=== PATIENT | male | born 1950 | race Caucasian/White ===

== ENCOUNTER 2016-09-04 05:30 | Inpatient (IN) ==
[2016-09-04] MEDS ORDERED: VANCOMYCIN INJ 1,000 MG in SODIUM CHLORIDE 0.9% 250 ML IV ONE (06:00)
[2016-09-04] MEDS ORDERED: SODIUM CHLORIDE 0.9% 100 ML IV ONE ×2 (06:02→08:48)
[2016-09-04] MEDS ORDERED: VANCOMYCIN 1,000 MG VIAL ONE (06:02)
[2016-09-04] MEDS ORDERED: ceFAZolin 1,000 MG VIAL ONE (06:02)
[2016-09-04] MEDS: LACTATED RINGERS 1,000 ML IV SCH ×2 (06:20→20:33)
[2016-09-04] MEDS ORDERED: FAMOTIDINE 20 MG TABLET ONE (06:35)
[2016-09-04] MEDS ORDERED: LORazepam 1 MG TABLET ONE (06:35)
[2016-09-04] MEDS ORDERED: FAMOTIDINE 20 MG TABLET PO ONE (06:35)
[2016-09-04] MEDS ORDERED: LORazepam 1 MG TABLET PO ONE (06:35)
[2016-09-04] MEDS ORDERED: ONDANSETRON 4 MG/2 ML VIAL ONE ×2 (07:00→08:59)
[2016-09-04] MEDS ORDERED: ETOMIDATE 20 MG/10 ML VIAL IV ONE (07:00)
[2016-09-04] MEDS ORDERED: LIDOCAINE 2% 5 ML VIAL ONE (07:00)
[2016-09-04] MEDS ORDERED: PROPOFOL 200 MG/20 ML VIAL IV ONE (07:00)
[2016-09-04] MEDS ORDERED: KETOROLAC 30 MG/1 ML VIAL ONE (07:00)
--- NOTE | 2016-09-04 07:00 | History and Physical Update ---
History and Physical Update - History and Physical H&P was reviewed, the patient examined and there: are no changes in the patients condition since last H&P was completed.
[2016-09-04] MEDS ORDERED: NALOXONE 0.4 MG/ML VIAL IV PRN (07:03)
[2016-09-04] MEDS ORDERED: TEMAZEPAM 7.5 MG CAPSULE PO PRN (07:03)
[2016-09-04] MEDS ORDERED: ONDANSETRON 4 MG/2 ML VIAL IV PRN ×2 (07:03→09:03)
[2016-09-04] MEDS ORDERED: BISACODYL 10 MG SUPP RECTAL PRN (07:03)
[2016-09-04] MEDS ORDERED: LACTULOSE 20 GM/30 ML UDCUP PO PRN (07:03)
[2016-09-04] MEDS ORDERED: MAGNESIUM HYDROXIDE SUSP 30 ML UDCUP PO PRN (07:03)
[2016-09-04] MEDS ORDERED: diphenhydrAMINE CAP 25 MG CAPSULE PO PRN (07:03)
[2016-09-04] MEDS ORDERED: HYDROmorphone 2 MG/1 ML VIAL IV PRN (07:03)
[2016-09-04] MEDS ORDERED: PROMETHAZINE 25 MG/1 ML VIAL IM PRN (07:03)
[2016-09-04] MEDS ORDERED: TRANEXAMIC ACID 1,000 MG/10 ML VIAL IV ONE (07:51)
[2016-09-04] MEDS ORDERED: ROPIVACAINE 0.5% 30 ML VIAL ONE (07:54)
--- NOTE | 2016-09-04 08:44 | Anesthesia Post-Op ---
Anesthesia Post OP - Post Ansesthetic Evaluation Patient seen in post op: Yes Resp: within normal limits CV: within normal limits Mental: within normal limits Temp: within normal limits [id number]: within normal limits Nausea and Vomiting: within normal limits Pain: within normal limits
[2016-09-04] MEDS ORDERED: MIDAZOLAM 2 MG/2 ML VIAL ONE (08:47)
[2016-09-04] MEDS ORDERED: fentaNYL 100 MCG/2 ML VIAL ONE (08:47)
[2016-09-04] MEDS ORDERED: LACTATED RINGERS 1,000 ML IV ONE (08:48)
[2016-09-04] MEDS ORDERED: KETAMINE 500 MG/10 ML VIAL ONE (08:48)
[2016-09-04] MEDS ORDERED: HYDROmorphone 2 MG/1 ML VIAL ONE (08:59)
--- NOTE | 2016-09-04 09:00 | XRay Report ---
Exam: XR knee 2V RT Date: 09/04/2016 7:05 AM Indication: Postop total knee Comparison: None Technical:AP lateral views Findings: Right total knee prosthesis has been placed. Surgical drains present x2 in the suprapatella bursa. Subcutaneous air is present. Osteotomy on the posterior aspect patella. No fracture present. Immobilizer present. Impression: 1. Interval total knee replacement without fracture with surgical drains present. PROCEDURE INTERPRETED AT [facility] DEPARTMENT OF RADIOLOGY Final Report Signed by: Dr. Sammy Bravo
[2016-09-04] MEDS: HYDROmorphone 2 MG/1 ML VIAL IV PRN ×2 (09:01→09:06)
[2016-09-04] MEDS: HYDROmorphone PCA 30 MG/30 ML SYRINGE IV SCH (13:23)
[2016-09-04] MEDS: ceFAZolin 2,000 MG in PREMIX 1 EACH IV SCH ×2 (14:18→21:05)
--- NOTE | 2016-09-04 14:57 | Pulmonology Consult Note ---
Assessment and Plan (1) Postop right knee replacement Status: Acute Assessment and plan: Likely some of the pain medication and anesthetic effects or carrying over postop. I suspect he has got some underlying sleep apnea. Does not appear to be having a lot of pain. Current Visit: Yes (2) Hypoxemia Status: Acute Assessment and plan: Again this is likely due to effects of pain medications and anesthetics on a patient who has undiagnosed obstructive sleep apnea. We will try him on 1 L nasal oxygen when he is awake and use BiPAP when he is asleep and try to keep his O2 sat at about 88-92%. ABGs are pending. Chest x-ray is pending. He does have a history of aortic insufficiency but nothing to indicate heart failure other than a trace of pedal edema. Will order a BNP. Current Visit: Yes (3) History of colon cancer, stage III Status: Acute Assessment and plan: This occurred in 2002. He had surgery and chemotherapy and is in complete remission. Dr. Wiggins follows. Current Visit: Yes History of Present Illness Chief complaint: Hypoxemia History of present illness: Mr. Burns is a 66 year old male had a right total knee replacement earlier today. In the recovery room he was somewhat hypoxemic and was put on BiPAP. His oxygen saturation is ranging in the mid 80s off oxygen and off the BiPAP at present. The patient is a non-smoker. He does not have any known chronic lung disease. He does fall asleep if he sits down to watch TV but has not fallen asleep talking to someone or driving. He does snore. He is overweight with a BMI of 35. He is getting some pain medications postoperatively. He has been diagnosed as having aortic insufficiency but no other significant heart or lung disease. He is not been known to be in heart failure. Dr. Maki has seen him in the past Home Medications Medication Instructions Recorded Confirmed Type Aspirin Tab 325 mg PO DAILY 09/01/16 09/04/16 History Atorvastatin [Lipitor] 10 mg PO DAILY 09/01/16 09/04/16 History Celecoxib [Celebrex] 100 mg PO DAILY 09/01/16 09/04/16 History Esomeprazole Magnesium [Nexium] 40 mg PO DAILY 09/01/16 09/04/16 History Furosemide Tab [Lasix Tab] 20 mg PO DAILY 09/01/16 09/04/16 History Losartan Potassium [Cozaar] 100 mg PO DAILY 09/01/16 09/04/16 History Multivitamin (Ocuvite) [Ocuvite] 1 tablet PO DAILY 09/01/16 09/04/16 History Nisoldipine [Sular] 17 mg PO DAILY 09/01/16 09/04/16 History Potassium Chloride 10 meq PO DAILY 09/01/16 09/04/16 History Tramadol HCl [Tramadol Tab] 50 mg PO BEDTIME 09/01/16 09/04/16 History Ubidecarenone [Co Q-10] 100 mg PO DAILY 09/01/16 09/04/16 History Allergies Allergy/AdvReac Type Severity Reaction Status Date / Time No Known Allergies Allergy Unverified 09/04/16 07:25 - Constitutional Constitutional: Present: daytime sleepiness - Respiratory Respiratory: Present: snoring - Musculoskeletal Musculoskeletal: Present: arthralgias Exam (Pulmonay) H&P - Constitutional Vitals: Period Temp Pulse Resp BP Sys/Raines Pulse Ox Last 24 Hr 97.5 F-98.1 F 46-65 16-20 106-160/54-95 93-98 Exam: Patient is alert and responsive. O2 saturation varying from 85-91 with him on room air. Pupils react to light throat clear. I do not hear any bruits. Chest is clear no wheezing no rales. Heart normal rate and rhythm without very mild diastolic murmur at the right base. Abdomen soft nontender no masses. Extremities no clubbing cyanosis. He does have some brownish discoloration of both lower extremities with like he has had in the postphlebitic syndrome or leg injuries in the past. Calves are nontender. Brace on the right knee. 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) Endocrine: History of: Dyslipidemia Gastrointestinal: History of: GERD Hematology: History of: Blood Transfusion Reaction (2002) - Surgical History HEENT Surgeries: Surgical HX of: Eye Surgery (right and light cataract surgery) Abdominal Surgeries: Surgical HX of: Abdominal Surgery (colectomy (colon cancer) ), Appendectomy, Colonoscopy, EGD Orthopedic Surgeries: Surgical HX of;: Total Knee Replacement (RTK 08/26) - Family History Family History: Reports;: Family Cancer (mother), Family Heart Disease (mother) , Family Stroke (father) - Social History Smoking Status: Never smoker Frequency of Alcohol Use: None Type of Drug Use: None Results - Diagnostic Findings Procedure: Chest x-ray: pending Specialty Discharge - Follow Up or Referrals Follow up with: Drake Bolton Jr., MD [Physician] -
--- NOTE | 2016-09-04 15:38 | XRay Report ---
Portable chest Date: 09/04/2016 Clinical history: Hypoxemia Comparison: 09/22/2013 Technique: Portable AP sitting chest Findings: The heart is minimally enlarged with left ventricular prominence and uncoiling of the aorta. Chronic scarring in the lungs with atelectasis at the lung bases. Stable mediastinum with degenerative changes. Impression: Persistent cardiomegaly with left ventricle prominence and uncoiling of the aorta which can be seen with hypertensive cardiovascular disease. Chronic scarring with minimal atelectasis. PROCEDURE INTERPRETED AT [facility] DEPARTMENT OF RADIOLOGY Final Report Signed by: Dr. Tiera Lagos
--- NOTE | 2016-09-04 15:49 | Orthopedic Progress Note ---
Orthopedics - Subjective Interval history: O2 sats good comfortable neurovascular intact discussed up in a.m. Exam - Constitutional Vitals: Period Temp Pulse Resp BP Sys/Raines Pulse Ox Last 24 Hr 97.5 F-98.1 F 46-65 16-20 106-160/54-95 93-98 Specialty Discharge - Follow Up or Referrals Follow up with: Drake Bolton Jr., MD [Physician] -
[2016-09-04 15:58] LABS: ABG Oxygen Saturation 96.3 % (95-100); ABG PCO2 48.5 MM HG (35-48); ABG PH 7.364 (7.35-7.45); ABG PO2 92.3 MM HG (80-95); ABG TCO2 28.5 MMOL/L (23-27)
[2016-09-04] MEDS: LOSARTAN 50 MG TABLET PO SCH (17:37)
[2016-09-04] MEDS: NISOLDIPINE 17 MG PO SCH (17:37)
[2016-09-04] MEDS: COENZYME Q10 100 MG CAPSULE PO SCH (17:46)
[2016-09-04] MEDS: MULTIVITAMIN (OCUVITE) TABLET PO SCH (17:46)
[2016-09-04] MEDS: ASPIRIN 325 MG TABLET PO SCH (17:46)
[2016-09-04] MEDS: CELECOXIB 100 MG CAPSULE PO SCH (17:47)
[2016-09-04] MEDS: DOCUSATE SODIUM 100 MG CAPSULE PO SCH ×2 (17:47→20:33)
[2016-09-04] MEDS: PANTOPRAZOLE 40 MG TABLET PO SCH (17:47)
[2016-09-04] MEDS: ATORVASTATIN 10 MG TABLET PO SCH (17:47)
[2016-09-04] MEDS: POTASSIUM CHLORIDE 10 MEQ TABLET PO SCH (17:47)
[2016-09-04] MEDS: FUROSEMIDE 20 MG TABLET PO SCH (17:47)
[2016-09-04] MEDS: traMADol 50 MG TABLET PO SCH (20:33)
[2016-09-05 04:57] LABS: Basophils % 0.2 % (0.0-0.8); Eosinophils # 0.1 10*3/uL (0.0-0.87); Eosinophils % 0.4 % (0.00-10.9); Hematocrit 37.5 VOL% (42.0-52.0); Hemoglobin 13.1 GM/DL (14.0-18.0); Immature Granulocytes % 0.4 %; Immature Granulocytes Absolute 0.04 #; Lymphocytes # 0.7 10*3/uL (1.4-4.0); Lymphocytes % 5.9 % (21.2-54.2); Mean Corpuscular HGB Conc 34.9 GM/DL (32-36); Mean Corpuscular Hemoglobin 32 PG (27-34); Mean Corpuscular Volume 90.1 FL (87-102); Mean Platelet Volume 10.2 FL (9.6-12.0); Monocytes # 1.1 10*3/uL (0.11-0.8); Neutrophils # 9.4 10*3/uL (1.4-7.4); Neutrophils % 83.1 % (38.7-73.9); Platelet Count 154 T/CUMM (130-400); Red Blood Count 4.16 MC/CUMM (3.8-5.5); White Blood Count 11.2 T/CUMM (4-12)
[2016-09-05 05:32] LABS: Calcium 8.3 MG/DL (8.5-10.1); Osmolality,Calculated 275.7 MOS/KG (273-304); Potassium 3.8 MMOL/L (3.5-5.1)
[2016-09-05] MEDS: LACTATED RINGERS 1,000 ML IV SCH ×2 (06:14→14:40)
--- NOTE | 2016-09-05 07:25 | Orthopedic Progress Note ---
Orthopedics - Subjective Interval history: Comfortable drain removed hemoglobin 13 ready for PT instructed Exam - Constitutional Vitals: Period Temp Pulse Resp BP Sys/Raines Pulse Ox Last 24 Hr 97.5 F-99.1 F 46-85 16-20 106-146/54-95 93-99 Results - Labs CBC & BMP: 09/05/16 04:38 09/05/16 04:38 Specialty Discharge - Follow Up or Referrals Follow up with: Drake Bolton Jr., MD [Physician] -
[2016-09-05] MEDS: HYDROmorphone PCA 30 MG/30 ML SYRINGE IV SCH (09:32)
[2016-09-05] MEDS: ASPIRIN 325 MG TABLET PO SCH (09:33)
[2016-09-05] MEDS: LOSARTAN 50 MG TABLET PO SCH (09:34)
[2016-09-05] MEDS: COENZYME Q10 100 MG CAPSULE PO SCH (09:34)
[2016-09-05] MEDS: DOCUSATE SODIUM 100 MG CAPSULE PO SCH ×2 (09:34→20:11)
[2016-09-05] MEDS: FUROSEMIDE 20 MG TABLET PO SCH (09:34)
[2016-09-05] MEDS: MULTIVITAMIN (OCUVITE) TABLET PO SCH (09:34)
[2016-09-05] MEDS: PANTOPRAZOLE 40 MG TABLET PO SCH (09:34)
[2016-09-05] MEDS: ATORVASTATIN 10 MG TABLET PO SCH (09:34)
[2016-09-05] MEDS: CELECOXIB 100 MG CAPSULE PO SCH (09:34)
[2016-09-05] MEDS: POTASSIUM CHLORIDE 10 MEQ TABLET PO SCH (09:34)
[2016-09-05] MEDS: NISOLDIPINE 17 MG PO SCH (09:34)
[2016-09-05] MEDS: FONDAPARINUX 2.5 MG/0.5 ML SYRINGE SUBCUT SCH (17:56)
[2016-09-05] MEDS: traMADol 50 MG TABLET PO SCH (20:11)
[2016-09-06] MEDS: LACTATED RINGERS 1,000 ML IV SCH (06:42)
--- NOTE | 2016-09-06 08:29 | Orthopedic Progress Note ---
Orthopedics - Subjective Interval history: Better this a.m. dressing dry ready to restart PT today discussed. Will stop SILK SPREADER Exam - Constitutional Vitals: Period Temp Pulse Resp BP Sys/Raines Pulse Ox Last 24 Hr 97.9 F-98.7 F 63-92 16-20 113-156/67-76 96-100 Results - Labs CBC & BMP: 09/05/16 04:38 09/05/16 04:38 Specialty Discharge - Follow Up or Referrals Follow up with: Drake Bolton Jr., MD [Physician] -
[2016-09-06] MEDS: MULTIVITAMIN (OCUVITE) TABLET PO SCH (08:44)
[2016-09-06] MEDS: NISOLDIPINE 17 MG PO SCH (08:44)
[2016-09-06] MEDS: PANTOPRAZOLE 40 MG TABLET PO SCH (08:44)
[2016-09-06] MEDS: DOCUSATE SODIUM 100 MG CAPSULE PO SCH ×2 (08:44→20:18)
[2016-09-06] MEDS: POTASSIUM CHLORIDE 10 MEQ TABLET PO SCH (08:44)
[2016-09-06] MEDS: COENZYME Q10 100 MG CAPSULE PO SCH (08:45)
[2016-09-06] MEDS: ASPIRIN 325 MG TABLET PO SCH (08:45)
[2016-09-06] MEDS: ATORVASTATIN 10 MG TABLET PO SCH (08:45)
[2016-09-06] MEDS: FUROSEMIDE 20 MG TABLET PO SCH (08:45)
[2016-09-06] MEDS: LOSARTAN 50 MG TABLET PO SCH (08:45)
[2016-09-06] MEDS: CELECOXIB 100 MG CAPSULE PO SCH (08:45)
[2016-09-06] MEDS: HYDROmorphone PCA 30 MG/30 ML SYRINGE IV SCH (09:36)
--- NOTE | 2016-09-06 13:42 | Pulmonology Progress Note ---
Pulmonary - PN: Subj Interval history: I have attempted to see the patient yesterday and today, but he has been indisposed when I come. Chart review shows no significant lab or VS abnormalities and there have been no acute problems per nursing Exam (Progress Note) - Constitutional Vitals: Period Temp Pulse Resp BP Sys/Raines Pulse Ox Last 24 Hr 97 F-98.7 F 61-92 16-18 113-156/70-76 93-99 Results - Labs CBC & BMP: 09/05/16 04:38 09/05/16 04:38 Lab Results: I have reviewed the past 24 hour labs Assessment and Plan (1) Hypoxemia Status: Acute Assessment and plan: Recorded vital sign SpO2 have been in the 90s on room air. May have a componant of atelectasis after the surgery. Ambulate as able per ortho and PT. Incentive spirometer should be at the bedside and used hourly while in bed. CPAP at night per Dr Ambika rendon. If there are any further concerns, please call Current Visit: Yes Specialty Discharge - Follow Up or Referrals Follow up with: Drake Bolton Jr., MD [Physician] -
[2016-09-06] MEDS: FONDAPARINUX 2.5 MG/0.5 ML SYRINGE SUBCUT SCH (17:31)
[2016-09-06] MEDS: traMADol 50 MG TABLET PO SCH (20:18)
[2016-09-07] MEDS: ASPIRIN 325 MG TABLET PO SCH (08:28)
[2016-09-07] MEDS: NISOLDIPINE 17 MG PO SCH (08:29)
[2016-09-07] MEDS: LOSARTAN 50 MG TABLET PO SCH (08:29)
[2016-09-07] MEDS: MULTIVITAMIN (OCUVITE) TABLET PO SCH (08:29)
[2016-09-07] MEDS: FUROSEMIDE 20 MG TABLET PO SCH (08:30)
[2016-09-07] MEDS: COENZYME Q10 100 MG CAPSULE PO SCH (08:30)
[2016-09-07] MEDS: CELECOXIB 100 MG CAPSULE PO SCH (08:30)
[2016-09-07] MEDS: PANTOPRAZOLE 40 MG TABLET PO SCH (08:30)
[2016-09-07] MEDS: DOCUSATE SODIUM 100 MG CAPSULE PO SCH (08:30)
[2016-09-07] MEDS: ATORVASTATIN 10 MG TABLET PO SCH (08:31)
[2016-09-07] MEDS: POTASSIUM CHLORIDE 10 MEQ TABLET PO SCH (08:31)
--- NOTE | 2016-09-07 08:54 | Orthopedic Progress Note ---
Orthopedics - Subjective Interval history: Tolerating PT and bed mobility well. Dressing is dry instructed will likely go home this afternoon after mobilizing. Exam - Constitutional Vitals: Period Temp Pulse Resp BP Sys/Raines Pulse Ox Last 24 Hr 97.1 F-99.5 F 61-94 17-20 116-150/66-77 92-97 Results - Labs CBC & BMP: 09/05/16 04:38 09/05/16 04:38 Specialty Discharge - Follow Up or Referrals Follow up with: Drake Bolton Jr., MD [Physician] -
--- NOTE | 2016-09-07 08:56 | Discharge Summary ---
Hospital Course - Hospital Course Hospital Course: Uneventful course postop total knee discharged home with home health Diagnosis - Discharge Diagnosis (1) Osteoarthritis of right knee Status: Acute Specialty Discharge - Follow Up or Referrals Follow up with: Drake Bolton Jr., MD [Physician] - Discharge Plan - Discharge Data Disposition: Home Health Service Condition at Discharge: Stable Discharge Diet: advance to your usual diet Activity: ambulate only with your walker, as per physical therapy, increase activity as tolerated Hygiene: may shower, keep area(s) dry Weight Bearing at Discharge: weight bear as tolerated Driving: not until seen by doctor - Discharge Medications New HYDROcodone/ACETAMIN 7.5-325 [Holbrook 7.5-325] 2 tablet PO Q4H PRN #30 tablet PRN Reason: Moderate Pain unrelieved by 1 Continue Tramadol HCl [Tramadol Tab] 50 mg PO BEDTIME Celecoxib [Celebrex] 100 mg PO DAILY Ubidecarenone [Co Q-10] 100 mg PO DAILY Furosemide Tab [Lasix Tab] 20 mg PO DAILY Potassium Chloride 10 meq PO DAILY Losartan Potassium [Cozaar] 100 mg PO DAILY Multivitamin (Ocuvite) [Ocuvite] 1 tablet PO DAILY Aspirin Tab 325 mg PO DAILY Nisoldipine [Sular] 17 mg PO DAILY Esomeprazole Magnesium [Nexium] 40 mg PO DAILY Atorvastatin [Lipitor] 10 mg PO DAILY - Follow Up or Referral Follow Up: Drake Bolton Jr., MD [Physician] - - Forms/Instructions Instructions: Total Knee Replacement (DC) Additional Discharge Instructions: Discharged home with home health service total knee protocol weightbearing as tolerated continue home medications including aspirin once a day Holbrook 7.5 #30 as needed pain. Antler to be removed and wound Steri-Stripped September 18. Follow-up 4 weeks Exam - Constitutional Vitals: Period Temp Pulse Resp BP Sys/Raines Pulse Ox Last 24 Hr 97.1 F-99.5 F 61-94 17-20 116-150/66-77 92-97 DS: Provider Date of admission: 09/04/16 05:30 Primary care physician: Troy Wiggins MD Attending physician on admission: Drake Bolton Jr., MD Consults: 09/04/16 07:03 Consult to Case Mgmt/Social Srvs [CONS] Routine Reason for Case Mgmt/Social Srvs: Rehab Home Health Equipment Consult Comment: Bedside Commode, CPM, Del to rm 321 today before D/C; Pt 6ft 4in 287lbs Consult to Occupational Therapy [CONS] Routine Reason for Occupational Therapy: Evaluate and Treat Consult Comment: ADL's Consult to Physical Therapy [CONS] Routine Reason for Physical Therapy: Evaluate and Treat Gait Training 09/04/16 07:05 Consult to Physician [CONS] Routine Comment: Consulting Provider: Hernan Apple Consulting Provider Notified: Yes When should Consulting Provider be notified: Now Consult to Specialist Group: Pulmonology When should Consulting Provider be notified: Now Person Notified: Dr apple Date Notified: 09/04/16 Time Notified: 14:31 Consult Notification Comment: Dr apple talked to nurse 09/04/16 14:14 Consult to Sleep Center [CONS] Routine Reason for Sleep Center: Sleep Center Physician Consult Comment: O2 sats dropping to 80s while sleeping 09/04/16 14:15 Consult to Physician [CONS] Routine Comment: Consulting Provider: 09/04/16 14:18 Consult to Physical Therapy [CONS] Routine Reason for Physical Therapy: Other Consult Comment: Please deliver Standard Walker to rm before D/C home this weekend. Discharging clinician: Drake Bolton Jr., MD
[2016-09-07] MEDS: FONDAPARINUX 2.5 MG/0.5 ML SYRINGE SUBCUT SCH (09:42)
[2016-09-07 12:11] VITALS: BP 126/64
--- NOTE | 2016-09-08 12:20 | Pathology Report from [facility] ---
[facility] [place] ACCESSION # : [id number] PATIENT NAME : Kailey Burns ORDERING DR : GAURAV QUINTERO JR, MD CLINICAL HX: Right knee osteoarthritis POST-OP DX: Same SPECIMEN INFO: Right knee bone and tissue GROSS DESCRIPTION: Received in formalin labeled KAILEY BURNS are multiple fragments of bone, cartilage and tissue measuring collectively 18.1 x 19.2 cm. The articular surfaces are degenerative with areas of subchondral eburnation measuring up to 3.1 cm and marked areas of cartilaginous lipping. Bowling Alley Mechanic sections are submitted in one cassette following decalcification. DIAGNOSIS FOR KAILEY BURNS: RIGHT KNEE BONE & TISSUE, TOTAL REPLACEMENT: Osteoarthritis. COLLECTED DATE: 09/04/2016 [facility] [place] REPORT DATE: 09/08/2016 ELECTRONICALLY SIGNED BY: Manfred Capone M.D. 09/08/2016 - 10:27:13 [facility]
--- NOTE | 2016-09-09 11:00 | Operative Note ---
DATE OF SURGERY: 09/04/2016 PREOPERATIVE DIAGNOSIS: OSTEOARTHRITIS, RIGHT KNEE POSTOPERATIVE DIAGNOSIS: OSTEOARTHRITIS, RIGHT KNEE OPERATIVE PROCEDURE: RIGHT TOTAL KNEE ([place]) SURGEON: Drake Bolton Jr., MD JIG AND FIXTURE REPAIRER: Kellie. ANESTHESIA: Spinal. INDICATIONS: A 66-year-old white male with severe osteoarthritis involving both knees right worse than left. He has maximized conservative treatment over the years including injections, oral agents. He was recently reevaluate, felt to be a candidate for total knee. He presents today for elective right knee replacement. OPERATIVE PROCEDURE: The patient is taken to the operating room and under spinal anesthetic, positioned in the supine position. The right leg positioned , prepped and draped in the usual sterile manner. He received Ancef and vancomycin preoperatively. The limb was elevated, exsanguinated, and the tourniquet inflated to 300 mmHg. A midline incision was made over the anterior aspect of the right knee. Sharp dissection was carried down through skin and subcutaneous tissue. A median parapatellar arthrotomy performed. The knee revealing extensive [id number] tricompartmental changes. Intramedullary alignment guides were used to make the appropriate cuts about the distal femur and proximal tibia. The femur was sized to a 9, the tibia to a 9. A 10 mm fixed bearing spacer was selected. The PCL retained. The patella was resurfaced with a 41 button. After removal of the trial components, the knee irrigated, and all three components were cemented into place. Two 1/8th-inch Hemovac drains were placed. The knee irrigated and closed in a standard fashion using #1 Vicryl for the arthrotomy, 2-0 Vicryl for the subcutaneous layer, and lai for skin. The tourniquet deflated during wound closure at 43 minutes, sterile dressing applied, he was taken to recovery room in stable condition. ALMAS
== END 2016-09-07 13:19 | disposition home health service (06) | DRG 470 ==
LOC: N.SDSINP 05:30 → N.3E 11:34
PROVIDERS: ADMIT Orthopaedic Surgery; ATTEND Orthopaedic Surgery

== ENCOUNTER 2017-01-12 05:40 | Inpatient (IN) ==
[2017-01-12] MEDS ORDERED: VANCOMYCIN INJ 1,000 MG in SODIUM CHLORIDE 0.9% 250 ML IV ONE (06:00)
[2017-01-12] MEDS ORDERED: ceFAZolin 1,000 MG VIAL ONE (06:04)
[2017-01-12] MEDS ORDERED: SODIUM CHLORIDE 0.9% 50 ML IV ONE (06:04)
[2017-01-12] MEDS ORDERED: VANCOMYCIN 1,000 MG VIAL ONE (06:04)
[2017-01-12] MEDS ORDERED: TRANEXAMIC ACID 1,000 MG/10 ML VIAL IV ONE (06:19)
[2017-01-12] MEDS ORDERED: ROPIVACAINE 0.5% 30 ML VIAL ONE (06:22)
[2017-01-12] MEDS: LACTATED RINGERS 1,000 ML IV SCH ×2 (06:36→13:29)
--- NOTE | 2017-01-12 06:56 | History and Physical Update ---
History and Physical Update - History and Physical H&P was reviewed, the patient examined and there: are no changes in the patients condition since last H&P was completed.
[2017-01-12] MEDS ORDERED: NALOXONE 0.4 MG/ML VIAL IV PRN (07:21)
[2017-01-12] MEDS ORDERED: BISACODYL 10 MG SUPP RECTAL PRN (07:21)
[2017-01-12] MEDS ORDERED: diphenhydrAMINE CAP 25 MG CAPSULE PO PRN (07:21)
[2017-01-12] MEDS ORDERED: MAGNESIUM HYDROXIDE SUSP 30 ML UDCUP PO PRN (07:21)
[2017-01-12] MEDS ORDERED: PROMETHAZINE 25 MG/1 ML VIAL IM PRN (07:21)
[2017-01-12] MEDS ORDERED: HYDROmorphone 2 MG/1 ML VIAL IV PRN (07:21)
[2017-01-12] MEDS ORDERED: ONDANSETRON 4 MG/2 ML VIAL IV PRN (07:21)
[2017-01-12] MEDS ORDERED: LACTULOSE 20 GM/30 ML UDCUP PO PRN (07:21)
[2017-01-12] MEDS ORDERED: PROPOFOL 200 MG/20 ML VIAL IV ONE (09:00)
[2017-01-12] MEDS ORDERED: LIDOCAINE 2% 5 ML VIAL ONE (09:00)
[2017-01-12] MEDS ORDERED: ONDANSETRON 4 MG/2 ML VIAL ONE (09:00)
--- NOTE | 2017-01-12 09:02 | Anesthesia Post-Op ---
Anesthesia Post OP - Post Ansesthetic Evaluation Patient seen in post op: Yes Resp: within normal limits CV: within normal limits Mental: within normal limits Temp: within normal limits [id number]: within normal limits Nausea and Vomiting: within normal limits Pain: within normal limits
--- NOTE | 2017-01-12 09:09 | XRay Report ---
XR knee 2V LT Indication: Knee arthroplasty Comparison: None available Findings: Arthroplasty component alignment and positioning appear within normal limits. No periprosthetic fracture seen. Impression: Knee arthroplasty appears within normal limits postoperatively. PROCEDURE INTERPRETED AT [facility] DEPARTMENT OF RADIOLOGY Final Report Signed by: Dr. Ochoa Trotter
[2017-01-12] MEDS ORDERED: fentaNYL 100 MCG/2 ML VIAL ONE (09:13)
[2017-01-12] MEDS ORDERED: ACETAMINOPHEN 1,000 MG/100 ML VIAL IV ONE (09:13)
[2017-01-12] MEDS ORDERED: MIDAZOLAM 2 MG/2 ML VIAL ONE (09:13)
[2017-01-12] MEDS: HYDROmorphone PCA 30 MG/30 ML SYRINGE IV SCH (09:50)
--- NOTE | 2017-01-12 12:22 | Orthopedic Progress Note ---
Orthopedics - Subjective Interval history: Postop check pain control fair tolerating better with LPC. Neurovascular intact discussed up in a.m. Exam - Constitutional Vitals: Period Temp Pulse Resp BP Sys/Raines Pulse Ox Last 24 Hr 97 F-98.4 F 56-71 14-20 108-157/61-79 95-100
[2017-01-12] MEDS: CELECOXIB 100 MG CAPSULE PO SCH (13:31)
[2017-01-12] MEDS: ASPIRIN 325 MG TABLET PO SCH (13:31)
[2017-01-12] MEDS: COENZYME Q10 100 MG CAPSULE PO SCH (13:32)
[2017-01-12] MEDS: FUROSEMIDE 20 MG TABLET PO SCH (13:32)
[2017-01-12] MEDS: LOSARTAN 50 MG TABLET PO SCH (13:32)
[2017-01-12] MEDS: DOCUSATE SODIUM 100 MG CAPSULE PO SCH ×2 (13:32→20:31)
[2017-01-12] MEDS: POTASSIUM CHLORIDE 10 MEQ TABLET PO SCH (13:32)
[2017-01-12] MEDS: NISOLDIPINE 17 MG PO SCH (13:33)
[2017-01-12] MEDS: ATORVASTATIN 10 MG TABLET PO SCH (13:33)
[2017-01-12] MEDS: PANTOPRAZOLE 40 MG TABLET PO SCH (13:33)
[2017-01-12] MEDS: MULTIVITAMIN (OCUVITE) TABLET PO SCH (13:33)
--- NOTE | 2017-01-12 15:39 | Cardiology Consult Note ---
<Anuja Kingston - Last Filed: 01/12/17 15:30> Assessment and Plan - Time spent with patient Time spent with patient: Greater than 30 minutes (1) Hypertension Status: Chronic Assessment and plan: SEE PLAN OF CARE LISTED BELOW Current Visit: Yes (2) Aortic regurgitation Status: Chronic Assessment and plan: SEE PLAN OF CARE LISTED BELOW Current Visit: Yes (3) Dyslipidemia Status: Chronic Assessment and plan: SEE PLAN OF CARE LISTED BELOW Current Visit: Yes (4) Postop right knee replacement Status: Acute Assessment and plan: SEE PLAN OF CARE LISTED BELOW Current Visit: No History of Present Illness - Data of Consult Patient: known to practice within the last 3 years Consult date: 01/12/17 Requesting Physician: Drake Bolton Jr. - Consult Narrative Reason for consult: hypertension, post TKR History of present illness: PLANT MAINTENANCE ENGINEER: DR. RODRIGUEZ SUMMARY: Mr. Burns, 67WM, has risk factors significant for: hypertension, dyslipidemia. History of mild to moderate aortic regurgitation. (History of colon cancer 2011 now in remission.) Admitted January 12, 2017 for elective left total knee replacement. Dr. Bolton performed procedure this morning and he has tolerated this well. Patient was seen January 11, [address] Rodriguez for preoperative risk evaluation at [facility]. Most recent echocardiogram was reviewed from January 06, 2017 with the following noted: EF 60%, grade 1 diastolic dysfunction, moderate concentric LVH, mild to moderate aortic regurgitation. From a cardiac standpoint, patient was given verification to proceed with proposed surgery. January 12, 2017: Denies chest pain, heaviness, tightness. Denies shortness of breath, palpitations. He is resting comfortably with [employer] for pain control. Labs are stable. Vital signs are stable. Aspirin, Atorvastatin and Losartan restarted. Will continue to follow his labs daily and vital signs. Will further discuss with Dr. Cartwright and await additional recommendations. IMPRESSION/PLAN: 1. HYPERTENSION - continue losartan. Will follow his blood pressures while he is hospitalized and adjust medications accordingly. 2. DYSLIPIDEMIA - Atorvastatin has been initiated. Recent fasting lipid profile in clinic. No need to repeat. 3. AORTIC REGURGITATION, MILD TO MODERATE -continue with current plan of care. Stable. 4. LEFT TKR - encouraged patient to use [employer] for pain control. Following labs and vital signs per CC: Drake Bolton Jr., MD - Home Medications and Allergies Home Medications: Home Medications Medication Instructions Recorded Confirmed Type Aspirin Tab 325 mg PO DAILY 09/01/16 01/12/17 History Atorvastatin [Lipitor] 10 mg PO DAILY 09/01/16 01/12/17 History Celecoxib [Celebrex] 100 mg PO DAILY 09/01/16 01/12/17 History Esomeprazole Magnesium [Nexium] 40 mg PO DAILY 09/01/16 01/12/17 History Furosemide Tab [Lasix Tab] 20 mg PO DAILY 09/01/16 01/12/17 History Losartan Potassium [Cozaar] 100 mg PO DAILY 09/01/16 01/12/17 History Multivitamin (Ocuvite) [Ocuvite] 1 tablet PO DAILY 09/01/16 01/12/17 History Nisoldipine [Sular] 17 mg PO DAILY 09/01/16 01/12/17 History Potassium Chloride 10 meq PO DAILY 09/01/16 01/12/17 History Tramadol HCl [Tramadol Tab] 50 mg PO BEDTIME 09/01/16 01/12/17 History Ubidecarenone [Co Q-10] 100 mg PO DAILY 09/01/16 01/12/17 History Allergies/Adverse Reactions: Allergies Allergy/AdvReac Type Severity Reaction Status Date / Time No Known Allergies Allergy Verified 01/12/17 06:12 Review of systems: REVIEW OF SYSTEMS: - Constitutional Constitutional: Present: Occasional fatigue. Absent: syncope, anorexia, night sweats - EENT Eyes: Absent: blurry vision, loss of vision, diplopia Ears: Absent: decreased hearing, ear pain, ear discharge - Cardiovascular Cardiovascular: Denies: chest pain with exertion, dyspnea on exertion, edema, palpitations. Absent: chest pain with deep breath, claudication, - Respiratory Respiratory: Denies: CORADO, cough. Absent: wheezing, hemoptysis, change in phlegm color - Gastrointestinal Gastrointestinal: Denies constipation. Absent: abdominal pain, hematemesis, hematochezia, melena, change in bowel habits, nausea - Genitourinary Genitourinary: Absent: difficulty urinating, dysuria, urinary hesitancy, flank pain - Musculoskeletal Musculoskeletal: Present: Minimal left knee pain at present. Absent: muscle cramps, muscle weakness - Neurological Neurological: Present: normal gait without frequent falls. Absent: dizziness, hemiparesis - Psychiatric Psychiatric: Absent: anxiety, depression, difficulty concentrating - Endocrine Endocrine: Absent: cold intolerance, heat intolerance, polyuria, polyphagia, polydipsia - Hematologic/Lymphatic Hematologic/Lymphatic: Present: easy bruising. 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), Dental Problems (CROWNS.) Endocrine: History of: Dyslipidemia Respiratory: History of: Respiratory Problems (FLU VAC- NO; PNEU VAC- NO.) Genitourinary: History of: Kidney Stones Gastrointestinal: History of: GERD, Gastrointestinal Cancer (2002) Musculoskeletal: History of: Musculoskeletal Problems (ARTHRITIS, CLAVICAL FX X6 ) Other: History of: Cancer (COLON CA) - Surgical History Abdominal Surgeries: Surgical HX of: Abdominal Surgery (colectomy (colon cancer) ), Appendectomy (1972), Colonoscopy, EGD Orthopedic Surgeries: Surgical HX of;: Total Knee Replacement (RTK 08/26; LTK ) - Family History Family History: Reports;: Family Cancer (mother), Family Diabetes (mother), Family Heart Disease (mother), Family Hypertension (mother), Family Stroke ( father) - Social History Smoking Status: Never smoker Have you smoked in the last 12 months: No Frequency of Alcohol Use: None Type of Drug Use: None Marital Status: Lives With:: Spouse Functional capacity: independent ambulation Physical Examination Vital Signs Temp Pulse Resp BP Pulse Ox 97.1 F L 60 20 150/77 96 01/12/17 06:15 01/12/17 06:15 01/12/17 06:15 01/12/17 06:15 01/12/17 06:15 Exam: General: [Appears well with no apparent distress.] [Pleasant and cooperative. ] [Appears comfortable.] HEENT: [PERRL, normocephalic, atraumatic. Mucous membranes moist. No jaundice noted. Conjunctiva moist and clear, sclerae anicteric] Neck: No JVD/HJR, no thyromegaly or lymphadenopathy noted. No carotid bruit appreciated Cardiac: [Regular rate and rhythm.] [No murmur, rub or gallop.] Lungs: [Clear to auscultation without accessory muscle use to assist the respiratory pattern.] Not requiring Abdomen: Soft, bowel sounds normoactive. Nontender and nondistended. No abdominal bruit or thrill noted. No masses noted. Musculoskeletal: No fluid collection. Decreased range of motion is noted. Extremities: No clubbing, cyanosis noted. [ No edema noted.] Upper extremity pulses 2+. Lower extremity pulses 2+. Left leg mobilizing device intact. Capillary refill less than 3 seconds. Skin: No unusual lesions or rashes. No skin breakdown appreciated. Neuro: Awake, alert and oriented 3. Moves all extremities well without hemiparesis or paralysis. No essential tremor is appreciated. Result/EKG - Labs Labs: Laboratory Results - last 24 hr 01/12/17 06:23 Blood Type O POSITIVE Antibody Screen Negative <Vannesa Cartwright - Last Filed: 01/12/17 19:14> History of Present Illness - Consult Narrative History of present illness: I have personally interviewed and evaluated the patient, reviewed the chart and discussed medical decision-making with Practitioner Thee. I have read this note and agree with her documentation here in. CC: Drake Bolton Jr., MD Physical Examination Vital Signs Temp Pulse Resp BP Pulse Ox 97.1 F L 60 20 150/77 96 01/12/17 06:15 01/12/17 06:15 01/12/17 06:15 01/12/17 06:15 01/12/17 06:15 Result/EKG - Labs Labs: Laboratory Results - last 24 hr 01/12/17 06:23 Blood Type O POSITIVE Antibody Screen Negative
--- NOTE | 2017-01-12 15:53 | Operative Note ---
DATE: 01/12/2017 PREOPERATIVE DIAGNOSIS: OSTEOARTHRITIS, LEFT KNEE. POSTOPERATIVE DIAGNOSIS: SAME. OPERATIVE PROCEDURE: LEFT TOTAL KNEE (ATTUNE) SURGEON: Drake Bolton Jr., MD CUSTOMS COLLECTOR: Dr. Nguyen. ANESTHESIA: Spinal. INDICATIONS: A 67-year-old white male with severe osteoarthritis to his left knee. He already had h is right knee replaced and it has been very well. He has maximized conservative treatments through t he years regarding his left knee, presented today for elective left total knee. OPERATIVE PROCEDURE: The patient was taken to the operating room and under anesthesia, positioned in supine position. The left lower extremity positioned, prepped and draped in a usual sterile manner. He received Ancef and vancomycin preoperatively. The limb was elevated, exsanguinated, and the rukhsana rniquet inflated to 300 mmHg. A midline incision was made over the anterior aspect of the left knee. Sharp dissection was carried down through skin and subcutaneous tissue. A median parapatellar arth rotomy performed. The knee revealed extensive [id number] osteoarthritis in all three compartments. Intramedullary alignment guides were used to make the appropriate cuts about the distal femur and p roximal tibia, both were sized to a 9. The PCL was retained. A 6 mm spacer selected and the patella resurfaced with a 41 button. After removal of the trial components, the knee was copiously irrigate d and then all three components were cemented into place. After cement hardened, the wound was close d with over two 1/8-inch Hemovac drains in a standard fashion using #1 Vicryl for the arthrotomy, 2-0 Vicryl for the subcutaneous layer, and lai for skin. Sterile dressings applied. He was taken t o the recovery room in stable condition. Tourniquet was deflated during wound closure at 44 minutes.
[2017-01-12] MEDS: ceFAZolin 2,000 MG in SODIUM CHLORIDE 0.9% 100 ML IV SCH ×2 (15:54→23:10)
[2017-01-12] MEDS: traMADol 50 MG TABLET PO SCH (20:30)
[2017-01-12] MEDS: FONDAPARINUX 2.5 MG/0.5 ML SYRINGE SUBCUT SCH (20:31)
[2017-01-13 07:19] LABS: Basophils % 0.1 % (0.0-0.8); Eosinophils % 0.1 % (0.00-10.9); Hematocrit 38.2 VOL% (42.0-52.0); Hemoglobin 13.4 GM/DL (14.0-18.0); Immature Granulocytes % 0.3 %; Immature Granulocytes Absolute 0.04 #; Lymphocytes # 0.6 10*3/uL (1.4-4.0); Lymphocytes % 4.3 % (21.2-54.2); Mean Corpuscular HGB Conc 35.1 GM/DL (32-36); Mean Corpuscular Hemoglobin 31 PG (27-34); Mean Corpuscular Volume 89.5 FL (87-102); Mean Platelet Volume 10.6 FL (9.6-12.0); Monocytes # 1.4 10*3/uL (0.11-0.8); Monocytes % 10.3 % (1.7-12.7); Neutrophils # 11.4 10*3/uL (1.4-7.4); Neutrophils % 84.9 % (38.7-73.9); Platelet Count 144 T/CUMM (130-400); Red Blood Count 4.27 MC/CUMM (3.8-5.5); Red Cell Distribution Width 13.2 % (9.3-17.3); White Blood Count 13.5 T/CUMM (4-12)
[2017-01-13 07:46] LABS: Calcium 8.4 MG/DL (8.5-10.1); Magnesium 1.9 MG/DL (1.8-2.4); Osmolality,Calculated 277.5 MOS/KG (273-304); Potassium 3.6 MMOL/L (3.5-5.1)
[2017-01-13 07:53] LABS: Giant Platelets Few; Hypochromasia 1+; Lymphocytes 4 % (20-55); Ovalocytes Slight; Platelet Estimate Normal; Segmented Neutrophils 88 % (50-85); Total Cells Counted 100
--- NOTE | 2017-01-13 07:54 | Oncology Progress Note ---
Oncology Subjective PN Interval history: This is a social visit. I cleared Mr. Burns for surgery and will be available if needed. Thank you. Exam - Constitutional Vitals: Period Temp Pulse Resp BP Sys/Raines Pulse Ox Last 24 Hr 97 F-98.5 F 51-95 14-20 108-157/61-83 90-100 Results - Labs CBC & BMP: 01/13/17 06:28 01/13/17 06:28
--- NOTE | 2017-01-13 07:58 | Orthopedic Progress Note ---
Orthopedics - Subjective Interval history: Pain control fair rested comfortably H&H stable we will start PT this a.m. Exam - Constitutional Vitals: Period Temp Pulse Resp BP Sys/Raines Pulse Ox Last 24 Hr 97 F-98.5 F 51-95 14-20 108-157/61-83 90-100 Results - Labs CBC & BMP: 01/13/17 06:28 01/13/17 06:28
[2017-01-13 08:00] LABS: Calcium 8.4 MG/DL (8.5-10.1); Osmolality,Calculated 275.7 MOS/KG (273-304); Potassium 3.6 MMOL/L (3.5-5.1)
[2017-01-13] MEDS: HYDROmorphone PCA 30 MG/30 ML SYRINGE IV SCH (09:16)
[2017-01-13] MEDS: LOSARTAN 50 MG TABLET PO SCH (09:17)
[2017-01-13] MEDS: COENZYME Q10 100 MG CAPSULE PO SCH (09:17)
[2017-01-13] MEDS: PANTOPRAZOLE 40 MG TABLET PO SCH (09:17)
[2017-01-13] MEDS: ASPIRIN 325 MG TABLET PO SCH (09:17)
[2017-01-13] MEDS: FUROSEMIDE 20 MG TABLET PO SCH (09:17)
[2017-01-13] MEDS: POTASSIUM CHLORIDE 10 MEQ TABLET PO SCH (09:17)
[2017-01-13] MEDS: NISOLDIPINE 17 MG PO SCH (09:17)
[2017-01-13] MEDS: MULTIVITAMIN (OCUVITE) TABLET PO SCH (09:17)
[2017-01-13] MEDS: CELECOXIB 100 MG CAPSULE PO SCH (09:17)
[2017-01-13] MEDS: ATORVASTATIN 10 MG TABLET PO SCH (09:18)
[2017-01-13] MEDS: DOCUSATE SODIUM 100 MG CAPSULE PO SCH ×2 (09:21→21:24)
[2017-01-13] MEDS ORDERED: ALUM/MAG/SIMETH/LIDO VISC 1:1 30 ML BOTTLE PO PRN (09:39)
--- NOTE | 2017-01-13 09:41 | Cardiology Progress Note ---
<Anuja Kingston E - Last Filed: 01/13/17 11:03> Assessment and Plan - Time spent with patient Time spent with patient: Greater than 30 minutes (1) Hypertension Status: Chronic Assessment and plan: SEE PLAN OF CARE LISTED BELOW Current Visit: Yes (2) Aortic regurgitation Status: Chronic Assessment and plan: SEE PLAN OF CARE LISTED BELOW Current Visit: Yes (3) Dyslipidemia Status: Chronic Assessment and plan: SEE PLAN OF CARE LISTED BELOW Current Visit: Yes (4) Postop right knee replacement Status: Acute Assessment and plan: SEE PLAN OF CARE LISTED BELOW Current Visit: No Cardiology - PN: Subj Interval history: CHEMICAL ANALYST: DR. RODRIGUEZ SUMMARY: Mr. Burns, 67WM, has risk factors significant for: hypertension, dyslipidemia. History of mild to moderate aortic regurgitation. (History of colon cancer 2011 now in remission.) Admitted January 12, 2017 for elective left total knee replacement. Dr. Bolton performed procedure this morning and he has tolerated this well. Patient was seen January 11, [address] Rodriguez for preoperative risk evaluation at [facility]. Most recent echocardiogram was reviewed from January 06, 2017 with the following noted: EF 60%, grade 1 diastolic dysfunction, moderate concentric LVH, mild to moderate aortic regurgitation. From a cardiac standpoint, patient was given verification to proceed with proposed surgery and did well. January 13, 2017: Patient is followed for chronic, stable conditions to include hypertension, dyslipidemia and mild to moderate aortic regurgitation. More acutely he has followed for postop left total knee replacement, POD 1. Denies chest pain, heaviness, tightness. Denies shortness of breath, palpitations. He is in a significant amount of pain and has been using his ARCHITECTURE TECHNICIAN with breakthrough pain medicine as well. He has had a significant amount of indigestion this morning described as burning and belching. He did miss his PPI yesterday and this was restarted this morning. I did offer him a GI cocktail to use as needed. Blood pressure is stable. SBP averaging 140 - 150 but given the acute pain he is in I suspect this will be transient. We will continue to follow his vital signs. Lab work is stable this morning. Will further discuss with Dr. Cartwright and await additional recommendations. JANUARY 13, 2017 REVIEW OF SYSTEMS: CARDIOVASCULAR: Denies chest pain, heaviness, tightness. Denies palpitations PULMONARY: Denies shortness of breath, orthopnea or PND GASTROINTESTINAL: Denies abdominal pain, constipation, nausea or vomiting IMPRESSION/PLAN: 1. HYPERTENSION - Will continue to monitor his blood pressure closely. At this time, will except systolic blood pressure 140s 150s given a significant amount of pain he is and. Again, we can adjust medications accordingly to better control his blood pressure once pain is better controlled. 2. DYSLIPIDEMIA - Atorvastatin continues. Recent fasting lipid profile in clinic. No need to repeat. 3. AORTIC REGURGITATION, MILD TO MODERATE - continue with current plan of care. Stable. 4. LEFT TKR - labs are stable. Encourage patient to use his ARCHITECTURE TECHNICIAN breakthrough medications for better pain control. Encouraged patient to use ARCHITECTURE TECHNICIAN for pain control. Aspirin continues, Arixtra continues. Exam (Progress Note) - Constitutional Vitals: Period Temp Pulse Resp BP Sys/Raines Pulse Ox Last 24 Hr 97 F-98.5 F 51-95 14-20 108-157/61-83 90-100 Exam: Exam: General: [Appears well with no apparent distress.] [Pleasant and cooperative. ] [Appears comfortable.] HEENT: [PERRL, normocephalic, atraumatic. Mucous membranes moist. No jaundice noted. Conjunctiva moist and clear, sclerae anicteric] Neck: No JVD/HJR, no thyromegaly or lymphadenopathy noted. No carotid bruit appreciated Cardiac: [Regular rate and rhythm.] [No murmur, rub or gallop.] Lungs: [Clear to auscultation without accessory muscle use to assist the respiratory pattern.] Not requiring Abdomen: Soft, bowel sounds normoactive. Nontender and nondistended. No abdominal bruit or thrill noted. No masses noted. Musculoskeletal: No fluid collection. Decreased range of motion is noted. Extremities: No clubbing, cyanosis noted. [ No edema noted.] Upper extremity pulses 2+. Lower extremity pulses 2+. Left leg mobilizing device intact. Capillary refill less than 3 seconds. Skin: No unusual lesions or rashes. No skin breakdown appreciated. Neuro: Awake, alert and oriented 3. Moves all extremities well without hemiparesis or paralysis. No essential tremor is appreciated. Result/EKG - Labs CBC & BMP: 01/13/17 06:28 01/13/17 06:28 Lab Results: I have reviewed the past 24 hour labs Labs: Laboratory Results - last 24 hr 01/13/17 01/13/17 01/13/17 06:28 06:28 06:28 WBC 13.5 H RBC 4.27 Hgb 13.4 L Hct 38.2 L MCV 89.5 MCH 31 MCHC 35.1 RDW 13.2 Plt Count 144 MPV 10.6 Neut % (Auto) 84.9 H Lymph % (Auto) 4.3 L Millard % (Auto) 10.3 Eos % (Auto) 0.1 Baso % (Auto) 0.1 Neut # (Auto) 11.4 H Lymph # (Auto) 0.6 L Millard # (Auto) 1.4 H Eos # (Auto) 0.0 Baso # (Auto) 0.0 Total Counted 100 Immature Gran % 0.3 Nucleated RBC % 0.0 Immature Gran # 0.04 Segmented Neutrophils 88 H Lymphocytes 4 L Monocytes 8 Nucleated RBCs # 0.00 Platelet Estimate Normal Giant Platelets Few Immature Plt Fraction 0.0 Hypochromasia 1+ Ovalocytes Slight Sodium 139 138 Potassium 3.6 3.6 Chloride 100 100 Carbon Dioxide 33 H 30 Anion Gap 9.6 11.6 BUN 11 11 Creatinine 0.80 0.70 GFR Calculation 135 143 BUN/Creatinine Ratio 13.00 15.00 Glucose 131 H 132 H Calculated Osmolality 277.5 275.7 Calcium 8.4 L 8.4 L Magnesium 1.9 Specialty Discharge - Follow Up or Referrals Follow up with: Drake Bolton Jr., MD [Physician] - <Vannesa Cartwright - Last Filed: 01/13/17 15:04> Cardiology - PN: Subj Interval history: Anuja agree. At the time of my visit he did not have any complaints, denied chest pain or shortness of breath. Hemodynamics are stable. Exam (Progress Note) - Constitutional Vitals: Period Temp Pulse Resp BP Sys/Raines Pulse Ox Last 24 Hr 97.2 F-98.5 F 52-95 18-20 119-151/61-83 90-96 Result/EKG - Labs CBC & BMP: 01/13/17 06:28 01/13/17 06:28 Labs: Laboratory Results - last 24 hr 01/13/17 01/13/17 01/13/17 06:28 06:28 06:28 WBC 13.5 H RBC 4.27 Hgb 13.4 L Hct 38.2 L MCV 89.5 MCH 31 MCHC 35.1 RDW 13.2 Plt Count 144 MPV 10.6 Neut % (Auto) 84.9 H Lymph % (Auto) 4.3 L Millard % (Auto) 10.3 Eos % (Auto) 0.1 Baso % (Auto) 0.1 Neut # (Auto) 11.4 H Lymph # (Auto) 0.6 L Millard # (Auto) 1.4 H Eos # (Auto) 0.0 Baso # (Auto) 0.0 Total Counted 100 Immature Gran % 0.3 Nucleated RBC % 0.0 Immature Gran # 0.04 Segmented Neutrophils 88 H Lymphocytes 4 L Monocytes 8 Nucleated RBCs # 0.00 Platelet Estimate Normal Giant Platelets Few Immature Plt Fraction 0.0 Hypochromasia 1+ Ovalocytes Slight Sodium 139 138 Potassium 3.6 3.6 Chloride 100 100 Carbon Dioxide 33 H 30 Anion Gap 9.6 11.6 BUN 11 11 Creatinine 0.80 0.70 GFR Calculation 135 143 BUN/Creatinine Ratio 13.00 15.00 Glucose 131 H 132 H Calculated Osmolality 277.5 275.7 Calcium 8.4 L 8.4 L Magnesium 1.9
--- NOTE | 2017-01-13 12:18 | Pathology Report from [facility] ---
[facility] [place] ACCESSION # : [id number] PATIENT NAME : Kailey Burns ORDERING DR : GAURAV QUINTERO JR, MD CLINICAL HX: LT knee osteoarthritis POST-OP DX: Same SPECIMEN INFO: LT knee bone & tissue GROSS DESCRIPTION: The specimen is received in formalin labeled KAILEY BURNS/ LEFT KNEE consists of an aggregate o bone, soft tissue and cartilage measuring 14.0 x 8.0 cm. The articular surface are focally degenerative with large areas of chondral eburnation seen. Warehouse Man tissue submitted in one cassette. DIAGNOSIS FOR KAILEY BURNS: LEFT KNEE, TOTAL REPLACEMENT: Fragments of cartilage and bone with degenerative/reactive changes, consistent with osteoarthritis. COLLECTED DATE: 01/12/2017 [facility] [place] REPORT DATE: 01/13/2017 ELECTRONICALLY SIGNED BY: Laurel Lay M.D. 01/13/2017 - 9:24:09 [place]
[2017-01-13] MEDS: traMADol 50 MG TABLET PO SCH (21:24)
[2017-01-13] MEDS: FONDAPARINUX 2.5 MG/0.5 ML SYRINGE SUBCUT SCH (21:24)
[2017-01-14] MEDS: LACTATED RINGERS 1,000 ML IV SCH (01:32)
[2017-01-14 07:01] LABS: Calcium 8.5 MG/DL (8.5-10.1); Magnesium 2.4 MG/DL (1.8-2.4); Osmolality,Calculated 275.7 MOS/KG (273-304); Potassium 3.8 MMOL/L (3.5-5.1)
--- NOTE | 2017-01-14 07:50 | Orthopedic Progress Note ---
Orthopedics - Subjective Interval history: Comfortable feeling better up to denis yesterday continue PT home with home health soon Exam - Constitutional Vitals: Period Temp Pulse Resp BP Sys/Raines Pulse Ox Last 24 Hr 97.5 F-99.0 F 71-84 18-20 115-147/68-92 90-96 Results - Labs CBC & BMP: 01/13/17 06:28 01/14/17 06:00 Specialty Discharge - Follow Up or Referrals Follow up with: Drake Bolton Jr., MD [Physician] -
[2017-01-14] MEDS: FUROSEMIDE 20 MG TABLET PO SCH (09:56)
[2017-01-14] MEDS: LOSARTAN 50 MG TABLET PO SCH (09:56)
[2017-01-14] MEDS: CELECOXIB 100 MG CAPSULE PO SCH (09:56)
[2017-01-14] MEDS: COENZYME Q10 100 MG CAPSULE PO SCH (09:56)
[2017-01-14] MEDS: ASPIRIN 325 MG TABLET PO SCH (09:56)
[2017-01-14] MEDS: DOCUSATE SODIUM 100 MG CAPSULE PO SCH ×2 (09:56→21:27)
[2017-01-14] MEDS: POTASSIUM CHLORIDE 10 MEQ TABLET PO SCH (09:57)
[2017-01-14] MEDS: PANTOPRAZOLE 40 MG TABLET PO SCH (09:59)
[2017-01-14] MEDS: ATORVASTATIN 10 MG TABLET PO SCH (09:59)
[2017-01-14] MEDS: MULTIVITAMIN (OCUVITE) TABLET PO SCH (09:59)
[2017-01-14] MEDS: NISOLDIPINE 17 MG PO SCH (09:59)
--- NOTE | 2017-01-14 11:34 | Cardiology Progress Note ---
<Anuja Kingston E - Last Filed: 01/14/17 11:29> Assessment and Plan - Time spent with patient Time spent with patient: Greater than 30 minutes (1) Hypertension Status: Chronic Assessment and plan: SEE PLAN OF CARE LISTED BELOW Current Visit: Yes (2) Aortic regurgitation Status: Chronic Assessment and plan: SEE PLAN OF CARE LISTED BELOW Current Visit: Yes (3) Dyslipidemia Status: Chronic Assessment and plan: SEE PLAN OF CARE LISTED BELOW Current Visit: Yes (4) Postop right knee replacement Status: Acute Assessment and plan: SEE PLAN OF CARE LISTED BELOW Current Visit: No Cardiology - PN: Subj Interval history: SENIOR COMPENSATION ANALYST: DR. RODRIGUEZ SUMMARY: Mr. Burns, 67WM, has risk factors significant for: hypertension, dyslipidemia. History of mild to moderate aortic regurgitation. (History of colon cancer 2011 now in remission.) Admitted January 12, 2017 for elective left total knee replacement. Dr. Bolton performed procedure this morning and he has tolerated this well. Patient was seen January 11, [address] Rodriguez for preoperative risk evaluation at [facility]. Most recent echocardiogram was reviewed from January 06, 2017 with the following noted: EF 60%, grade 1 diastolic dysfunction, moderate concentric LVH, mild to moderate aortic regurgitation. From a cardiac standpoint, patient was given verification to proceed with proposed surgery and did well. January 14, 2017: Patient is followed for chronic, stable conditions to include hypertension, dyslipidemia and mild to moderate aortic regurgitation. More acutely he has followed for postop left total knee replacement, POD 2. Denies chest pain, heaviness, tightness. Denies shortness of breath, palpitations. His pain has improved overnight. He has been sitting up in the bedside chair for much of the morning and has worked with physical therapy today. He is pleased with his progress. He may be discharged home tomorrow with physical therapy and home. Indigestion has improved after initiating PPI and GI cocktail. Blood pressure is stable as are labs. We will continue to follow his vital signs closely. Encouraged incentive spirometry. At this time, we will sign off and are happy to be reconsulted as needed. Will further discuss with Dr. Cartwright and await additional recommendations. JANUARY 14, 2017 REVIEW OF SYSTEMS: CARDIOVASCULAR: Denies chest fullness or pain, heaviness, tightness. Denies palpitations PULMONARY: Denies shortness of breath, orthopnea or PND GASTROINTESTINAL: Denies abdominal pain, constipation, nausea or vomiting MUSCULOSKELETAL: Left knee pain improved. No paresthesia IMPRESSION/PLAN: 1. HYPERTENSION - adequately controlled. Continue current antihypertensive regimen. Will continue to follow along and adjust medications accordingly during hospital stay. 2. DYSLIPIDEMIA - Atorvastatin 10 mg continues. Will move to an evening dose. Recent fasting lipid profile in clinic. No need to repeat. 3. AORTIC REGURGITATION, MILD TO MODERATE - continue with current plan of care. Stable. 4. LEFT TKR -pain is better controlled. He is progressing nicely. Hopefully , patient may be discharged home tomorrow. Exam (Progress Note) - Constitutional Vitals: Period Temp Pulse Resp BP Sys/Raines Pulse Ox Last 24 Hr 97.5 F-99.0 F 71-84 18-18 110-147/68-92 90-96 Exam: Exam: General: [Appears well with no apparent distress.] [Pleasant and cooperative. ] [Appears comfortable.] HEENT: [PERRL, normocephalic, atraumatic. Mucous membranes moist. No jaundice noted. Conjunctiva moist and clear, sclerae anicteric] Neck: No JVD/HJR, no thyromegaly or lymphadenopathy noted. No carotid bruit appreciated Cardiac: [Regular rate and rhythm.] [No murmur, rub or gallop.] Lungs: [Clear to auscultation without accessory muscle use to assist the respiratory pattern.] Not requiring Abdomen: Soft, bowel sounds normoactive. Nontender and nondistended. No abdominal bruit or thrill noted. No masses noted. Musculoskeletal: No fluid collection. Decreased range of motion is noted. Extremities: No clubbing, cyanosis noted. [ Trace BLE edema noted.] Upper extremity pulses 2+. Lower extremity pulses 2+. Left leg mobilizing device intact. Capillary refill less than 3 seconds. Skin: No unusual lesions or rashes. No skin breakdown appreciated. Neuro: Awake, alert and oriented 3. Moves all extremities well without hemiparesis or paralysis. No essential tremor is appreciated. Result/EKG - Labs CBC & BMP: 01/13/17 06:28 01/14/17 06:00 Lab Results: I have reviewed the past 24 hour labs Labs: Laboratory Results - last 24 hr 01/14/17 06:00 Sodium 138 Potassium 3.8 Chloride 101 Carbon Dioxide 31 Anion Gap 9.8 BUN 13 Creatinine 0.60 L GFR Calculation 152 BUN/Creatinine Ratio 21.00 H Glucose 111 H Calculated Osmolality 275.7 Calcium 8.5 Magnesium 2.4 Specialty Discharge - Follow Up or Referrals Follow up with: Drake Bolton Jr., MD [Physician] - <ChayVannesa - Last Filed: 01/14/17 17:50> Cardiology - PN: Subj Interval history: I have personally interviewed and evaluated the patient, reviewed the chart and discussed medical decision-making with Practitioner Thee. I have read this note and agree with her documentation here in. Exam (Progress Note) - Constitutional Vitals: Period Temp Pulse Resp BP Sys/Raines Pulse Ox Last 24 Hr 97.1 F-99.0 F 71-84 18-18 97-140/54-92 93-96 Result/EKG - Labs CBC & BMP: 01/13/17 06:28 01/14/17 06:00 Labs: Laboratory Results - last 24 hr 01/14/17 06:00 Sodium 138 Potassium 3.8 Chloride 101 Carbon Dioxide 31 Anion Gap 9.8 BUN 13 Creatinine 0.60 L GFR Calculation 152 BUN/Creatinine Ratio 21.00 H Glucose 111 H Calculated Osmolality 275.7 Calcium 8.5 Magnesium 2.4
[2017-01-14] MEDS: HYDROmorphone PCA 30 MG/30 ML SYRINGE IV SCH (17:58)
[2017-01-14] MEDS ORDERED: ATORVASTATIN 10 MG TABLET PO SCH (21:00)
[2017-01-14] MEDS: FONDAPARINUX 2.5 MG/0.5 ML SYRINGE SUBCUT SCH (21:25)
[2017-01-14] MEDS: traMADol 50 MG TABLET PO SCH (21:27)
[2017-01-15 04:35] LABS: Calcium 8.2 MG/DL (8.5-10.1); Magnesium 2.2 MG/DL (1.8-2.4); Osmolality,Calculated 279.5 MOS/KG (273-304); Potassium 3.6 MMOL/L (3.5-5.1)
--- NOTE | 2017-01-15 08:24 | Orthopedic Progress Note ---
Orthopedics - Subjective Interval history: Comfortable dressing dry progressing nicely with PT will go home today after session discharge instructions given. Exam - Constitutional Vitals: Period Temp Pulse Resp BP Sys/Raines Pulse Ox Last 24 Hr 97.1 F-99.1 F 69-86 18-20 97-134/54-76 94-98 Results - Labs CBC & BMP: 01/13/17 06:28 01/15/17 03:26 Specialty Discharge - Follow Up or Referrals Follow up with: Drake Bolton Jr., MD [Physician] -
--- NOTE | 2017-01-15 08:27 | Discharge Summary ---
Hospital Course - Hospital Course Hospital Course: Admitted for elective left total knee uncomplicated course discharged home Specialty Discharge - Follow Up or Referrals Follow up with: Drake Bolton Jr., MD [Physician] - Discharge Plan - Discharge Data Disposition: Home Health Service Condition at Discharge: Stable Discharge Diet: advance to your usual diet Activity: ambulate only with your walker, as per physical therapy, increase activity as tolerated Hygiene: may shower, keep area(s) dry Weight Bearing at Discharge: weight bear as tolerated Driving: not for (While taking narcotic) - Discharge Medications New HYDROcodone/ACETAMIN 7.5-325 [[place] 7.5-325] 2 tablet PO Q4H PRN #30 tablet PRN Reason: Moderate Pain unrelieved by 1 Continue Tramadol HCl [Tramadol Tab] 50 mg PO BEDTIME Celecoxib [Celebrex] 100 mg PO DAILY Ubidecarenone [Co Q-10] 100 mg PO DAILY Furosemide Tab [Lasix Tab] 20 mg PO DAILY Potassium Chloride 10 meq PO DAILY Losartan Potassium [Cozaar] 100 mg PO DAILY Multivitamin (Ocuvite) [Ocuvite] 1 tablet PO DAILY Aspirin Tab 325 mg PO DAILY Nisoldipine [Sular] 17 mg PO DAILY Esomeprazole Magnesium [Nexium] 40 mg PO DAILY Atorvastatin [Lipitor] 10 mg PO DAILY - Follow Up or Referral Follow Up: Drake Bolton Jr., MD [Physician] - - Forms/Instructions Instructions: Total Knee Replacement (DC) Additional Discharge Instructions: Discharged home with home health continue PT weightbearing as tolerated home CPM unit lai to be removed and wound Steri- Stripped January 26. [place] for pain resume home meds including aspirin daily. Follow-up 4 weeks Exam - Constitutional Vitals: Period Temp Pulse Resp BP Sys/Raines Pulse Ox Last 24 Hr 97.1 F-99.1 F 69-86 18-20 97-134/54-76 94-98 Discharge Results Labs on day of discharge: Labs from last 24 hours 01/15/17 03:26 Sodium 139 Potassium 3.6 Chloride 103 Carbon Dioxide 30 Anion Gap 9.6 BUN 18 Creatinine 0.70 GFR Calculation 143 BUN/Creatinine Ratio 25.00 H Glucose 109 H Calculated Osmolality 279.5 Calcium 8.2 L Magnesium 2.2 DS: Provider Date of admission: 01/12/17 05:40 Primary care physician: Troy Wiggins MD Attending physician on admission: Drake Bolton Jr., MD Consults: 01/12/17 07:21 Consult to Case Mgmt/Social Srvs [CONS] Routine Reason for Case Mgmt/Social Srvs: Rehab Home Health Equipment Consult Comment: Deliver a CPM machine directly to Pt's home on Wednesday after D/C'd Consult to Occupational Therapy [CONS] Routine Reason for Occupational Therapy: Evaluate and Treat Consult Comment: ADL's Consult to Physical Therapy [CONS] Routine Reason for Physical Therapy: Evaluate and Treat Gait Training 01/12/17 07:23 Consult to Physician [CONS] Routine Comment: Consulting Provider: Troy Wiggins Consulting Provider Notified: Yes When should Consulting Provider be notified: Now Person Notified: anjana called Date Notified: 01/12/17 Time Notified: 10:38 01/12/17 10:30 Consult to Physician [CONS] Routine Comment: Consulting Provider: Denita Maki Consulting Provider Notified: Yes When should Consulting Provider be notified: Now Person Notified: rebekah called Date Notified: 01/12/17 Time Notified: 10:33 Discharging clinician: Drake Bolton Jr., MD
[2017-01-15] MEDS: ASPIRIN 325 MG TABLET PO SCH (09:05)
[2017-01-15] MEDS: CELECOXIB 100 MG CAPSULE PO SCH (09:06)
[2017-01-15] MEDS: MULTIVITAMIN (OCUVITE) TABLET PO SCH (09:06)
[2017-01-15] MEDS: COENZYME Q10 100 MG CAPSULE PO SCH (09:06)
[2017-01-15] MEDS: DOCUSATE SODIUM 100 MG CAPSULE PO SCH (09:06)
[2017-01-15] MEDS: NISOLDIPINE 17 MG PO SCH (09:06)
[2017-01-15] MEDS: FUROSEMIDE 20 MG TABLET PO SCH (09:06)
[2017-01-15] MEDS: POTASSIUM CHLORIDE 10 MEQ TABLET PO SCH (09:06)
[2017-01-15] MEDS: PANTOPRAZOLE 40 MG TABLET PO SCH (09:06)
[2017-01-15] MEDS: LOSARTAN 50 MG TABLET PO SCH (09:06)
[2017-01-15 10:41] VITALS: BP 119/60
== END 2017-01-15 11:55 | disposition home health service (06) | DRG 470 ==
LOC: N.SDSINP 05:40 → N.3E 10:02
PROVIDERS: ADMIT Orthopaedic Surgery; ATTEND Orthopaedic Surgery

== ENCOUNTER 2018-09-14 08:57 | Inpatient (IN) ==
[2018-09-14] MEDS ORDERED: DEXTROSE 50% 25 GM/50 ML VIAL IV PRN (11:48)
[2018-09-14] MEDS ORDERED: GLUCAGON 1 MG VIAL IM PRN (11:48)
[2018-09-14] MEDS ORDERED: SODIUM CHLORIDE 0.9% 1,000 ML IV SCH (12:00)
[2018-09-14 12:22] LABS: Basophils % 0.9 % (0.0-0.8); Eosinophils # 0.2 10*3/uL (0.0-0.87); Eosinophils % 4.1 % (0.00-10.9); Hematocrit 42.2 VOL% (42.0-52.0); Hemoglobin 14.2 GM/DL (14.0-18.0); Immature Granulocytes % 0.4 %; Immature Granulocytes Absolute 0.02 #; Lymphocytes # 1.1 10*3/uL (1.4-4.0); Lymphocytes % 22.4 % (21.2-54.2); Mean Corpuscular HGB Conc 33.6 GM/DL (32-36); Mean Corpuscular Volume 92.1 FL (87-102); Mean Platelet Volume 9.8 FL (9.6-12.0); Monocytes % 10.3 % (1.7-12.7); Neutrophils % 61.9 % (38.7-73.9); Platelet Count 153 T/CUMM (130-400); Red Blood Count 4.58 MC/CUMM (3.8-5.5); Red Cell Distribution Width 12.7 % (9.3-17.3); White Blood Count 4.7 T/CUMM (4-12)
[2018-09-14 12:48] LABS: Albumin 3.7 G/DL (3.4-5.0); Bilirubin,Total 0.5 MG/DL (0.2-1.0); Calcium 8.3 MG/DL (8.5-10.1); Osmolality,Calculated 280.4 MOS/KG (273-304); Total Protein 6.7 G/DL (6.4-8.3)
[2018-09-14 14:33] LABS: ABG Base Excess 2.4 MMOL/L (-2.5-2.5); ABG HCO3 26.4 MMOL/L (20-26); ABG PCO2 39.6 MM HG (35-48); ABG PH 7.435 (7.35-7.45); ABG PO2 69.8 MM HG (80-95); ABG TCO2 22.7 MMOL/L (23-27)
[2018-09-14] MEDS: CHLORHEXIDINE 4% SOLN 118 ML BOTTLE TOP SCH ×2 (14:59→21:15)
[2018-09-14] MEDS: CHLORHEXIDINE 0.12% ORAL RINSE 60 ML BOTTLE SWISH/SPIT SCH (21:15)
[2018-09-15] MEDS ORDERED: VANCOMYCIN 1,000 MG VIAL ONE (04:26)
[2018-09-15] MEDS: CHLORHEXIDINE 4% SOLN 118 ML BOTTLE TOP SCH ×2 (05:00→10:09)
[2018-09-15] MEDS ORDERED: FAMOTIDINE 20 MG TABLET PO ONE (05:30)
[2018-09-15] MEDS ORDERED: DIAZEPAM 5 MG TABLET PO ONE (05:30)
[2018-09-15] MEDS ORDERED: CEFUROXIME INJ 1,500 MG in SYRINGE 1 EACH IV ONE (06:00)
[2018-09-15] MEDS ORDERED: ePHEDrine 50 MG/ML AMP ONE ×2 (06:05→10:58)
[2018-09-15] MEDS ORDERED: MIDAZOLAM 10 MG/2 ML VIAL ONE (06:05)
[2018-09-15 07:37] LABS: ABG Base Excess 1.3 MMOL/L (-2.5-2.5); ABG HCO3 25.6 MMOL/L (20-26); ABG Oxygen Saturation 99.7 % (95-100); ABG PCO2 46.1 MM HG (35-48); ABG PH 7.377 (7.35-7.45); ABG TCO2 23.4 MMOL/L (23-27); Glucose Heart Surgery 130 MG/DL (74-106); Hematocrit Heart Surgery 43.2 PERCENT (42-52); Hemoglobin Heart Surgery 14.1 G/DL (14.0-18.0); Ionized Calcium Arterial 1.13 MMOL/L (1.21-1.46); PCO2 Patient Temp Arterial 46.1 MMHG; PH Patient Temp Arterial 7.377; Patient Temperature 37 CELCIUS; Potassium Heart/CVR 3.7 MMOL/L (3.5-5.1); Sodium Heart/CVR 139 MMOL/L (135-145)
[2018-09-15 08:40] LABS: Hemoglobin Heart Surgery 11.4 G/DL (14.0-18.0); PCO2 Patient Temp Venous 39.2 MM HG; PH Patient Temp Venous 7.436; PO2 Patient Temp Venous 41.1 MM HG; VBG Base Excess 2.2 MEQ/L (0-4); VBG Oxygen Saturation 79.4 %; VBG PCO2 41.2 MMHG (41-51); VBG PH 7.422
[2018-09-15] MEDS ORDERED: CELECOXIB 200 MG CAPSULE PO SCH (09:00)
[2018-09-15] MEDS ORDERED: FUROSEMIDE 20 MG TABLET PO SCH (09:00)
[2018-09-15] MEDS ORDERED: ATORVASTATIN 20 MG TABLET PO SCH (09:00)
[2018-09-15] MEDS ORDERED: COENZYME Q10 100 MG CAPSULE PO SCH (09:00)
[2018-09-15] MEDS ORDERED: LOSARTAN 50 MG TABLET PO SCH (09:00)
[2018-09-15] MEDS ORDERED: POTASSIUM CHLORIDE 10 MEQ TABLET PO SCH (09:00)
[2018-09-15] MEDS ORDERED: MULTIVITAMIN (OCUVITE) TABLET PO SCH (09:00)
[2018-09-15] MEDS ORDERED: ASPIRIN 325 MG TABLET PO SCH (09:00)
[2018-09-15] MEDS ORDERED: amLODIPine 10 MG TABLET PO SCH (09:00)
[2018-09-15 09:09] LABS: Hematocrit Heart Surgery 34.5 PERCENT (42-52); Hemoglobin Heart Surgery 11.2 G/DL (14.0-18.0); PCO2 Patient Temp Venous 34.1 MM HG; PH Patient Temp Venous 7.481; PO2 Patient Temp Venous 38.3 MM HG; Potassium Heart/CVR 3.9 MMOL/L (3.5-5.1); VBG Base Excess 2.3 MEQ/L (0-4); VBG HCO3 26.2 MEQ/L (24-28); VBG Oxygen Saturation 83.2 %; VBG PCO2 39.4 MMHG (41-51); VBG PH 7.437; VBG PO2 47.1 MMHG (17-40)
[2018-09-15] MEDS ORDERED: SODIUM BICARBONATE 50 MEQ/50 ML VIAL IV ONE ×2 (09:38→09:56)
[2018-09-15] MEDS ORDERED: PHENYLEPHRINE DRIP 40 MG/250 ML PREMIX IV ONE (09:38)
[2018-09-15] MEDS ORDERED: POTASSIUM CHLORIDE RIDER 100 ML IV ONE (09:38)
[2018-09-15] MEDS ORDERED: NITROPRUSSIDE 50 MG/2 ML VIAL ONE (09:38)
[2018-09-15] MEDS ORDERED: CALCIUM CHLORIDE 1,000 MG/10 ML SYRINGE IV ONE (09:38)
[2018-09-15 09:55] LABS: ABG Base Excess 0.2 MMOL/L (-2.5-2.5); ABG HCO3 24.6 MMOL/L (20-26); ABG Oxygen Saturation 99.5 % (95-100); ABG PCO2 34.4 MM HG (35-48); ABG PH 7.446 (7.35-7.45); ABG TCO2 21.2 MMOL/L (23-27); Glucose Heart Surgery 219 MG/DL (74-106); Hematocrit Heart Surgery 34.1 PERCENT (42-52); Hemoglobin Heart Surgery 11.1 G/DL (14.0-18.0); Ionized Calcium Arterial 1.09 MMOL/L (1.21-1.46); PCO2 Patient Temp Arterial 34.4 MMHG; PH Patient Temp Arterial 7.446; Patient Temperature 37 CELCIUS; Potassium Heart/CVR 3.5 MMOL/L (3.5-5.1); Sodium Heart/CVR 136 MMOL/L (135-145)
[2018-09-15] MEDS ORDERED: ALBUMIN 25% 25 GM/100 ML VIAL IV ONE (09:56)
[2018-09-15] MEDS ORDERED: MANNITOL 100 GM/500 ML BAG IV ONE (09:56)
[2018-09-15] MEDS ORDERED: DEXTROSE 5% KCL 20 MEQ 20 MEQ/1,000 ML BAG IV ONE (09:56)
[2018-09-15] MEDS ORDERED: PROTAMINE SULFATE 250 MG/25 ML VIAL IV ONE (09:56)
[2018-09-15] MEDS ORDERED: MAGNESIUM SULFATE 5 GM/10 ML VIAL IV ONE (09:56)
[2018-09-15] MEDS ORDERED: FUROSEMIDE 20 MG/2 ML VIAL ONE (09:57)
[2018-09-15] MEDS ORDERED: HEPARIN 10,000 UNIT/10 ML VIAL ONE (09:57)
[2018-09-15] MEDS ORDERED: methylPREDNISolone SOD SUC 1,000 MG/8 ML VIAL ONE (09:57)
[2018-09-15] MEDS: CHLORHEXIDINE 0.12% ORAL RINSE 60 ML BOTTLE SWISH/SPIT SCH (10:10)
[2018-09-15] MEDS ORDERED: NITROGLYCERIN DRIP 0 MG/0 ML BOTTLE IV ONE (10:17)
[2018-09-15] MEDS ORDERED: INSULIN REGULAR 100 UNIT/ML IV ONE (10:55)
[2018-09-15] MEDS ORDERED: VECURONIUM 10 MG VIAL IV PRN ×2 (10:55)
[2018-09-15] MEDS ORDERED: ACETAMINOPHEN 650 MG SUPP RECTAL PRN (10:55)
[2018-09-15] MEDS ORDERED: MAGNESIUM SULF RIDER 4 GM in PREMIX 1 EACH IV PRN (10:55)
[2018-09-15] MEDS ORDERED: MIDAZOLAM 10 MG/2 ML VIAL IV PRN (10:55)
[2018-09-15] MEDS ORDERED: CALCIUM CHLORIDE 1,000 MG/10 ML SYRINGE IV PRN (10:55)
[2018-09-15] MEDS ORDERED: MIDAZOLAM 2 MG/2 ML VIAL IV PRN (10:55)
[2018-09-15] MEDS ORDERED: MAGNESIUM SULF RIDER 2 GM in PREMIX 1 EACH IV PRN (10:55)
[2018-09-15] MEDS ORDERED: MORPHINE 4 MG/1 ML VIAL IV PRN (10:55)
[2018-09-15] MEDS ORDERED: NITROPRUSSIDE 100 MG in DEXTROSE 5% 250 ML IV PRN (10:55)
[2018-09-15] MEDS ORDERED: INSULIN REGULAR 100 UNIT/ML IV PRN (10:55)
[2018-09-15] MEDS ORDERED: DEXTROSE 50% 25 GM/50 ML VIAL IV PRN ×2 (10:55)
[2018-09-15] MEDS ORDERED: PHENYLEPHRINE DRIP 40 MG/250 ML PREMIX IV PRN (10:55)
[2018-09-15] MEDS ORDERED: ONDANSETRON 4 MG/2 ML VIAL IV PRN (10:55)
[2018-09-15] MEDS ORDERED: LACTATED RINGERS 250 ML IV PRN (10:55)
[2018-09-15] MEDS ORDERED: PHENYLEPHRINE DRIP 20 MG/250 ML PREMIX IV ONE (10:57)
[2018-09-15] MEDS ORDERED: CALCIUM CHLORIDE 1,000 MG/10 ML VIAL IV ONE (10:57)
[2018-09-15] MEDS ORDERED: HEPARIN/NACL 0.9% 2 UNITS/ML 500 ML IV ONE (10:57)
[2018-09-15] MEDS ORDERED: SEVOFLURANE 1 UNIT/15 MINUTE INH ONE (10:57)
[2018-09-15] MEDS ORDERED: PROPOFOL 200 MG/20 ML VIAL IV ONE (10:57)
[2018-09-15] MEDS ORDERED: SODIUM CHLORIDE 0.9% 2,000 ML IV ONE (10:58)
[2018-09-15] MEDS ORDERED: NITROGLYCERIN DRIP 50 MG/250 ML BOTTLE IV ONE (10:58)
[2018-09-15] MEDS ORDERED: GLYCOPYRROLATE 0.4 MG/2 ML VIAL ONE (10:58)
[2018-09-15] MEDS ORDERED: INSULIN REGULAR DRIP 100 ML IV SCH (11:00)
[2018-09-15] MEDS ORDERED: SODIUM CHLORIDE 0.45% 1,000 ML IV SCH ×2 (11:00)
[2018-09-15] MEDS ORDERED: PROTAMINE SULFATE 50 MG/5 ML VIAL IV ONE (11:01)
[2018-09-15 11:13] LABS: ABG Base Excess 0.6 MMOL/L (-2.5-2.5); ABG HCO3 24.9 MMOL/L (20-26); ABG Oxygen Saturation 95.6 % (95-100); ABG PCO2 37.4 MM HG (35-48); ABG PH 7.427 (7.35-7.45); ABG PO2 75.7 MM HG (80-95); ABG TCO2 21.8 MMOL/L (23-27); Glucose Heart Surgery 198 MG/DL (74-106); Hematocrit Heart Surgery 37.4 PERCENT (42-52); Hemoglobin Heart Surgery 12.1 G/DL (14.0-18.0); Potassium Heart/CVR 3.5 MMOL/L (3.5-5.1)
[2018-09-15 11:20] LABS: Basophils % 0.3 % (0.0-0.8); Eosinophils # 0.1 10*3/uL (0.0-0.87); Hematocrit 34.2 VOL% (42.0-52.0); Immature Granulocytes % 0.3 %; Immature Granulocytes Absolute 0.02 #; Lymphocytes # 0.4 10*3/uL (1.4-4.0); Lymphocytes % 6.2 % (21.2-54.2); Mean Corpuscular HGB Conc 33.9 GM/DL (32-36); Mean Corpuscular Volume 92.4 FL (87-102); Mean Platelet Volume 9.9 FL (9.6-12.0); Monocytes % 3.8 % (1.7-12.7); Neutrophils % 88.4 % (38.7-73.9); Red Cell Distribution Width 12.6 % (9.3-17.3)
[2018-09-15 11:26] LABS: INR 1.2; PT Patient Result 12.9 SECS; Partial Thromboplastin Time 27.1 SECS (0-40)
[2018-09-15 11:28] LABS: Hemoglobin 11.6 GM/DL (14.0-18.0); Platelet Count 124 T/CUMM (130-400); White Blood Count 7.1 T/CUMM (4-12)
[2018-09-15 11:42] LABS: CKMB % 6.1 %
[2018-09-15 11:49] LABS: Troponin I 1.13 NG/ML (0.00-0.045)
[2018-09-15 11:51] LABS: Albumin 3.2 G/DL (3.4-5.0); Bilirubin,Total 0.9 MG/DL (0.2-1.0); Calcium 8.3 MG/DL (8.5-10.1); Osmolality,Calculated 282.4 MOS/KG (273-304); Total Protein 5.4 G/DL (6.4-8.3)
[2018-09-15] MEDS: KETOROLAC 30 MG/1 ML VIAL IV SCH ×3 (12:10→22:21)
[2018-09-15] MEDS: POTASSIUM CHLORIDE RIDER 20 MEQ in PREMIX 1 EACH IV PRN ×8 (12:25→22:52)
[2018-09-15] MEDS ORDERED: FUROSEMIDE 40 MG/4 ML VIAL IV ONE (13:00)
[2018-09-15] MEDS: ALBUMIN 5% 12.5 GM in PREMIX 1 EACH IV PRN ×3 (13:18→22:22)
[2018-09-15 13:21] LABS: ABG Base Excess -1.2 MMOL/L (-2.5-2.5); ABG HCO3 23.4 MMOL/L (20-26); ABG Oxygen Saturation 97.7 % (95-100); ABG PH 7.404 (7.35-7.45); ABG TCO2 20.2 MMOL/L (23-27); Glucose Heart Surgery 195 MG/DL (74-106); Hematocrit Heart Surgery 39.8 PERCENT (42-52); Potassium Heart/CVR 3.6 MMOL/L (3.5-5.1)
[2018-09-15 14:57] LABS: ABG HCO3 23.5 MMOL/L (20-26); ABG Oxygen Saturation 97.6 % (95-100); ABG PCO2 37.1 MM HG (35-48); ABG PH 7.405 (7.35-7.45); ABG PO2 97.4 MM HG (80-95); ABG TCO2 20.3 MMOL/L (23-27); Glucose Heart Surgery 203 MG/DL (74-106); Hematocrit Heart Surgery 39.9 PERCENT (42-52); Potassium Heart/CVR 3.9 MMOL/L (3.5-5.1)
[2018-09-15 17:12] LABS: ABG Base Excess -1.5 MMOL/L (-2.5-2.5); ABG HCO3 23.1 MMOL/L (20-26); ABG Oxygen Saturation 96.5 % (95-100); ABG PCO2 38.2 MM HG (35-48); ABG PO2 86.1 MM HG (80-95); ABG TCO2 20.3 MMOL/L (23-27); Glucose Heart Surgery 193 MG/DL (74-106); Hematocrit Heart Surgery 39.2 PERCENT (42-52); Hemoglobin Heart Surgery 12.7 G/DL (14.0-18.0); Potassium Heart/CVR 4.1 MMOL/L (3.5-5.1)
[2018-09-15] MEDS: CEFUROXIME INJ 1,500 MG in SYRINGE 1 EACH IV SCH (18:25)
[2018-09-15] MEDS ORDERED: FUROSEMIDE 40 MG/4 ML VIAL IV PRN (18:28)
[2018-09-15 20:20] LABS: ABG Base Excess -1.5 MMOL/L (-2.5-2.5); ABG HCO3 23.1 MMOL/L (20-26); ABG Oxygen Saturation 97.6 % (95-100); ABG PCO2 38.3 MM HG (35-48); ABG PH 7.389 (7.35-7.45); ABG PO2 99.3 MM HG (80-95); ABG TCO2 20.3 MMOL/L (23-27); Glucose Heart Surgery 165 MG/DL (74-106); Hematocrit Heart Surgery 39.2 PERCENT (42-52); Hemoglobin Heart Surgery 12.7 G/DL (14.0-18.0); Potassium Heart/CVR 4.2 MMOL/L (3.5-5.1)
[2018-09-15 20:52] LABS: CKMB % 5.2 %
[2018-09-15 20:54] LABS: Troponin I 1.94 NG/ML (0.00-0.045)
[2018-09-15] MEDS ORDERED: CHLORHEXIDINE 0.12% ORAL RINSE 60 ML BOTTLE SWISH/SPIT SCH (21:00)
[2018-09-15 21:11] LABS: ABG Base Excess -1.4 MMOL/L (-2.5-2.5); ABG HCO3 22.1 MMOL/L (20-26); ABG Oxygen Saturation 97.4 % (95-100); ABG PCO2 33.7 MM HG (35-48); ABG PH 7.435 (7.35-7.45); ABG PO2 102.6 MM HG (80-95); ABG TCO2 23.2 MMOL/L (23-27); Glucose Heart Surgery 143 MG/DL (74-106); Hemoglobin Heart Surgery 12.9 G/DL (14.0-18.0); Potassium Heart/CVR 3.9 MMOL/L (3.5-5.1)
[2018-09-15] MEDS: MORPHINE 10 MG/1 ML VIAL IV PRN (22:02)
[2018-09-15 22:40] LABS: ABG Base Excess -0.2 MMOL/L (-2.5-2.5); ABG HCO3 24.2 MMOL/L (20-26); ABG Oxygen Saturation 95.2 % (95-100); ABG PCO2 39.5 MM HG (35-48); ABG PO2 77.6 MM HG (80-95); ABG TCO2 21.6 MMOL/L (23-27); Glucose Heart Surgery 128 MG/DL (74-106); Hematocrit Heart Surgery 38.4 PERCENT (42-52); Hemoglobin Heart Surgery 12.5 G/DL (14.0-18.0); Potassium Heart/CVR 3.8 MMOL/L (3.5-5.1)
[2018-09-15] MEDS: POTASSIUM CHLORIDE RIDER 10 MEQ in PREMIX 1 EACH IV PRN (23:43)
[2018-09-15 23:51] LABS: ABG Base Excess 1.5 MMOL/L (-2.5-2.5); ABG HCO3 25.7 MMOL/L (20-26); ABG Oxygen Saturation 95.4 % (95-100); ABG PCO2 35.8 MM HG (35-48); ABG PH 7.453 (7.35-7.45); ABG PO2 73.8 MM HG (80-95); ABG TCO2 21.9 MMOL/L (23-27); Glucose Heart Surgery 114 MG/DL (74-106); Hematocrit Heart Surgery 39.3 PERCENT (42-52); Hemoglobin Heart Surgery 12.8 G/DL (14.0-18.0); Potassium Heart/CVR 4.1 MMOL/L (3.5-5.1)
[2018-09-16] MEDS: MORPHINE 10 MG/1 ML VIAL IV PRN ×3 (00:31→05:57)
[2018-09-16 01:08] LABS: ABG Base Excess 1.9 MMOL/L (-2.5-2.5); ABG Oxygen Saturation 96.2 % (95-100); ABG PCO2 39.3 MM HG (35-48); ABG PH 7.431 (7.35-7.45); ABG PO2 80.7 MM HG (80-95); ABG TCO2 22.9 MMOL/L (23-27); Glucose Heart Surgery 114 MG/DL (74-106); Hematocrit Heart Surgery 39.2 PERCENT (42-52); Hemoglobin Heart Surgery 12.7 G/DL (14.0-18.0); Potassium Heart/CVR 3.8 MMOL/L (3.5-5.1)
[2018-09-16] MEDS: POTASSIUM CHLORIDE RIDER 20 MEQ in PREMIX 1 EACH IV PRN ×2 (02:04→05:52)
[2018-09-16 02:10] LABS: ABG Base Excess 1.8 MMOL/L (-2.5-2.5); ABG Oxygen Saturation 95.5 % (95-100); ABG PCO2 41.1 MM HG (35-48); ABG PH 7.418 (7.35-7.45); ABG PO2 77.9 MM HG (80-95); ABG TCO2 23.2 MMOL/L (23-27); Glucose Heart Surgery 142 MG/DL (74-106); Hemoglobin Heart Surgery 12.7 G/DL (14.0-18.0); Potassium Heart/CVR 3.8 MMOL/L (3.5-5.1)
[2018-09-16 04:20] LABS: ABG Base Excess 1.7 MMOL/L (-2.5-2.5); ABG HCO3 25.8 MMOL/L (20-26); ABG Oxygen Saturation 92.6 % (95-100); ABG PCO2 40.3 MM HG (35-48); ABG PH 7.421 (7.35-7.45); ABG PO2 64.5 MM HG (80-95); Glucose Heart Surgery 165 MG/DL (74-106); Hematocrit Heart Surgery 39.1 PERCENT (42-52); Hemoglobin Heart Surgery 12.7 G/DL (14.0-18.0); Potassium Heart/CVR 3.9 MMOL/L (3.5-5.1)
[2018-09-16 04:26] LABS: Basophils % 0.1 % (0.0-0.8); Hematocrit 35.7 VOL% (42.0-52.0); Immature Granulocytes % 0.6 %; Immature Granulocytes Absolute 0.11 #; Lymphocytes # 0.4 10*3/uL (1.4-4.0); Lymphocytes % 2.1 % (21.2-54.2); Mean Corpuscular HGB Conc 33.6 GM/DL (32-36); Mean Platelet Volume 10.6 FL (9.6-12.0); Monocytes % 3.9 % (1.7-12.7); Neutrophils % 93.3 % (38.7-73.9); Platelet Count 124 T/CUMM (130-400); Red Blood Count 3.84 MC/CUMM (3.8-5.5); Red Cell Distribution Width 12.8 % (9.3-17.3); White Blood Count 17.1 T/CUMM (4-12)
[2018-09-16 04:46] LABS: Troponin I 1.97 NG/ML (0.00-0.045)
[2018-09-16 04:56] LABS: Bilirubin,Direct 0.16 MG/DL (0.0-0.20); Bilirubin,Total 0.7 MG/DL (0.2-1.0); Calcium 8.8 MG/DL (8.5-10.1); Osmolality,Calculated 282.4 MOS/KG (273-304); Total Protein 6.7 G/DL (6.4-8.3)
[2018-09-16] MEDS: INSULIN REGULAR 100 UNIT/ML SUBCUT SCH ×2 (05:02→07:56)
[2018-09-16 05:30] LABS: Lymphocytes 1 % (20-55); Segmented Neutrophils 98 % (50-85); Total Cells Counted 100
[2018-09-16 05:32] LABS: Anisocytosis Slight; Microcytosis 1+; Ovalocytes Slight; Platelet Estimate Adequate
[2018-09-16] MEDS: CEFUROXIME INJ 1,500 MG in SYRINGE 1 EACH IV SCH (05:50)
[2018-09-16] MEDS: KETOROLAC 30 MG/1 ML VIAL IV SCH ×4 (05:50→21:13)
[2018-09-16] MEDS: POTASSIUM CHLORIDE RIDER 10 MEQ in PREMIX 1 EACH IV PRN (06:30)
[2018-09-16] MEDS ORDERED: DEXTROSE 50% 25 GM/50 ML VIAL IV PRN ×2 (08:01)
[2018-09-16] MEDS ORDERED: MAGNESIUM SULF RIDER 4 GM in PREMIX 1 EACH IV PRN (08:01)
[2018-09-16] MEDS ORDERED: ACETAMINOPHEN 325 MG TABLET PO PRN (08:01)
[2018-09-16] MEDS ORDERED: MORPHINE 4 MG/1 ML VIAL IV PRN (08:01)
[2018-09-16] MEDS ORDERED: GLUCAGON 1 MG VIAL IM PRN ×2 (08:01)
[2018-09-16] MEDS ORDERED: MAGNESIUM HYDROXIDE SUSP 30 ML UDCUP PO PRN (08:01)
[2018-09-16] MEDS ORDERED: POTASSIUM CHLORIDE 20 MEQ TABLET PO PRN (08:01)
[2018-09-16] MEDS ORDERED: ALUMINUM/MAGNES/SIMETH MAX STR 30 ML UDCUP PO PRN (08:01)
[2018-09-16] MEDS ORDERED: ZALEPLON 5 MG CAPSULE PO PRN (08:01)
[2018-09-16] MEDS ORDERED: MAGNESIUM SULF RIDER 2 GM in PREMIX 1 EACH IV PRN (08:01)
[2018-09-16] MEDS ORDERED: ONDANSETRON 4 MG/2 ML VIAL IV PRN (08:01)
[2018-09-16] MEDS: CELECOXIB 200 MG CAPSULE PO SCH (09:13)
[2018-09-16] MEDS: LOSARTAN 50 MG TABLET PO SCH (09:13)
[2018-09-16] MEDS: PANTOPRAZOLE 40 MG TABLET PO SCH (09:13)
[2018-09-16] MEDS: ATORVASTATIN 20 MG TABLET PO SCH (09:13)
[2018-09-16] MEDS: DOCUSATE SODIUM 100 MG CAPSULE PO SCH (09:13)
[2018-09-16] MEDS: MULTIVITAMIN (OCUVITE) TABLET PO SCH (09:13)
[2018-09-16] MEDS: ASPIRIN EC 325 MG TABLET PO SCH (09:14)
[2018-09-16] MEDS: FERROUS SULFATE 325 MG TABLET PO SCH (09:14)
[2018-09-16] MEDS: COENZYME Q10 100 MG CAPSULE PO SCH (09:42)
[2018-09-16] MEDS: CHLORHEXIDINE 0.12% ORAL RINSE 60 ML BOTTLE SWISH/SPIT SCH ×2 (09:43→21:17)
[2018-09-16] MEDS: oxyCODONE/ACETAMINOPHEN 5-325 MG TABLET PO PRN ×2 (12:16→21:12)
[2018-09-16] MEDS: SODIUM CHLOR 0.45% KCL 20 MEQ 20 MEQ/1,000 ML BAG IV SCH (14:17)
[2018-09-17] MEDS: KETOROLAC 30 MG/1 ML VIAL IV SCH ×4 (02:24→22:27)
[2018-09-17] MEDS ORDERED: FUROSEMIDE 40 MG/4 ML VIAL IV ONE (06:00)
[2018-09-17 06:03] LABS: Basophils % 0.1 % (0.0-0.8); Hematocrit 34.7 VOL% (42.0-52.0); Hemoglobin 11.6 GM/DL (14.0-18.0); Immature Granulocytes % 0.6 %; Lymphocytes # 0.7 10*3/uL (1.4-4.0); Mean Corpuscular HGB Conc 33.4 GM/DL (32-36); Mean Corpuscular Volume 94.6 FL (87-102); Mean Platelet Volume 10.6 FL (9.6-12.0); Monocytes % 7.6 % (1.7-12.7); Neutrophils % 87.7 % (38.7-73.9); Platelet Count 117 T/CUMM (130-400); Red Blood Count 3.67 MC/CUMM (3.8-5.5); Red Cell Distribution Width 13.2 % (9.3-17.3); White Blood Count 16.9 T/CUMM (4-12)
[2018-09-17 06:40] LABS: Alanine Aminotransferase 19 U/L (16-61); Albumin 3.8 G/DL (3.4-5.0); Alkaline Phosphatase 64 U/L (45-117); Aspartate Amino Transferase 17 U/L (0-37); Bilirubin,Indirect 0.5 MG/DL (0.0-1.0); Blood Urea Nitrogen 23 MG/DL (7-18); Calcium 8.5 MG/DL (8.5-10.1); Glucose 106 MG/DL (74-106); Osmolality,Calculated 284.3 MOS/KG (273-304)
[2018-09-17 06:42] LABS: Troponin I 0.837 NG/ML (0.00-0.045)
[2018-09-17 06:45] LABS: Anisocytosis 1+; Lymphocytes 3 % (20-55); Segmented Neutrophils 92 % (50-85); Total Cells Counted 100
[2018-09-17 06:46] LABS: Hypochromasia 1+; Microcytosis 1+; Platelet Estimate Decreased
[2018-09-17] MEDS: SODIUM CHLOR 0.45% KCL 20 MEQ 20 MEQ/1,000 ML BAG IV SCH (09:02)
[2018-09-17] MEDS: COENZYME Q10 100 MG CAPSULE PO SCH (09:05)
[2018-09-17] MEDS: LOSARTAN 50 MG TABLET PO SCH (09:05)
[2018-09-17] MEDS: ASPIRIN EC 325 MG TABLET PO SCH (09:05)
[2018-09-17] MEDS: CELECOXIB 200 MG CAPSULE PO SCH (09:05)
[2018-09-17] MEDS: PANTOPRAZOLE 40 MG TABLET PO SCH (09:06)
[2018-09-17] MEDS: FERROUS SULFATE 325 MG TABLET PO SCH (09:06)
[2018-09-17] MEDS: DOCUSATE SODIUM 100 MG CAPSULE PO SCH (09:06)
[2018-09-17] MEDS: ATORVASTATIN 20 MG TABLET PO SCH (09:06)
[2018-09-17] MEDS: MULTIVITAMIN (OCUVITE) TABLET PO SCH (09:06)
[2018-09-17] MEDS: CHLORHEXIDINE 0.12% ORAL RINSE 60 ML BOTTLE SWISH/SPIT SCH ×2 (09:08→22:28)
[2018-09-17] MEDS: oxyCODONE/ACETAMINOPHEN 5-325 MG TABLET PO PRN (22:28)
[2018-09-18] MEDS: KETOROLAC 30 MG/1 ML VIAL IV SCH ×4 (02:26→22:32)
[2018-09-18 06:31] LABS: Basophils % 0.2 % (0.0-0.8); Eosinophils # 0.1 10*3/uL (0.0-0.87); Eosinophils % 1.6 % (0.00-10.9); Hematocrit 34.2 VOL% (42.0-52.0); Hemoglobin 11.6 GM/DL (14.0-18.0); Immature Granulocytes % 0.6 %; Immature Granulocytes Absolute 0.05 #; Lymphocytes # 1.1 10*3/uL (1.4-4.0); Lymphocytes % 12.7 % (21.2-54.2); Mean Corpuscular HGB Conc 33.9 GM/DL (32-36); Mean Corpuscular Volume 94.5 FL (87-102); Mean Platelet Volume 10.6 FL (9.6-12.0); Monocytes % 9.5 % (1.7-12.7); Neutrophils % 75.4 % (38.7-73.9); Platelet Count 102 T/CUMM (130-400); Red Blood Count 3.62 MC/CUMM (3.8-5.5); Red Cell Distribution Width 13.2 % (9.3-17.3)
[2018-09-18 06:50] LABS: Alanine Aminotransferase 18 U/L (16-61); Albumin 3.4 G/DL (3.4-5.0); Alkaline Phosphatase 61 U/L (45-117); Aspartate Amino Transferase 12 U/L (0-37); Bilirubin,Indirect 0.4 MG/DL (0.0-1.0); Blood Urea Nitrogen 25 MG/DL (7-18); Calcium 8.3 MG/DL (8.5-10.1); Glucose 94 MG/DL (74-106); Osmolality,Calculated 284.3 MOS/KG (273-304); Total Protein 6.1 G/DL (6.4-8.3)
[2018-09-18 06:52] LABS: Troponin I 0.414 NG/ML (0.00-0.045)
[2018-09-18] MEDS: ASPIRIN EC 325 MG TABLET PO SCH (09:01)
[2018-09-18] MEDS: LOSARTAN 50 MG TABLET PO SCH (09:01)
[2018-09-18] MEDS: COENZYME Q10 100 MG CAPSULE PO SCH (09:01)
[2018-09-18] MEDS: CELECOXIB 200 MG CAPSULE PO SCH (09:02)
[2018-09-18] MEDS: FERROUS SULFATE 325 MG TABLET PO SCH (09:02)
[2018-09-18] MEDS: DOCUSATE SODIUM 100 MG CAPSULE PO SCH (09:02)
[2018-09-18] MEDS: PANTOPRAZOLE 40 MG TABLET PO SCH (09:02)
[2018-09-18] MEDS: CHLORHEXIDINE 0.12% ORAL RINSE 60 ML BOTTLE SWISH/SPIT SCH ×2 (09:02→22:32)
[2018-09-18] MEDS: ATORVASTATIN 20 MG TABLET PO SCH (09:02)
[2018-09-18] MEDS: MULTIVITAMIN (OCUVITE) TABLET PO SCH (09:02)
[2018-09-18] MEDS: oxyCODONE/ACETAMINOPHEN 5-325 MG TABLET PO PRN (22:32)
[2018-09-18] MEDS: ENOXAPARIN 40 MG/0.4 ML SYRINGE SUBCUT SCH (22:32)
[2018-09-19] MEDS: KETOROLAC 30 MG/1 ML VIAL IV SCH (02:42)
[2018-09-19] MEDS: CELECOXIB 200 MG CAPSULE PO SCH (09:23)
[2018-09-19] MEDS: LOSARTAN 50 MG TABLET PO SCH (09:23)
[2018-09-19] MEDS: FERROUS SULFATE 325 MG TABLET PO SCH (09:23)
[2018-09-19] MEDS: MULTIVITAMIN (OCUVITE) TABLET PO SCH (09:23)
[2018-09-19] MEDS: ATORVASTATIN 20 MG TABLET PO SCH (09:23)
[2018-09-19] MEDS: CHLORHEXIDINE 0.12% ORAL RINSE 60 ML BOTTLE SWISH/SPIT SCH ×2 (09:24→21:00)
[2018-09-19] MEDS: ASPIRIN EC 325 MG TABLET PO SCH (09:24)
[2018-09-19] MEDS: PANTOPRAZOLE 40 MG TABLET PO SCH (09:24)
[2018-09-19] MEDS: DOCUSATE SODIUM 100 MG CAPSULE PO SCH (09:25)
[2018-09-19] MEDS: COENZYME Q10 100 MG CAPSULE PO SCH (09:29)
[2018-09-19] MEDS: ENOXAPARIN 40 MG/0.4 ML SYRINGE SUBCUT SCH (21:00)
[2018-09-20 04:57] LABS: Basophils % 0.4 % (0.0-0.8); Eosinophils # 0.4 10*3/uL (0.0-0.87); Eosinophils % 4.8 % (0.00-10.9); Hematocrit 34.4 VOL% (42.0-52.0); Hemoglobin 11.8 GM/DL (14.0-18.0); Immature Granulocytes % 1.2 %; Immature Granulocytes Absolute 0.09 #; Lymphocytes # 0.9 10*3/uL (1.4-4.0); Lymphocytes % 11.6 % (21.2-54.2); Mean Corpuscular HGB Conc 34.3 GM/DL (32-36); Mean Platelet Volume 10.3 FL (9.6-12.0); Monocytes % 8.9 % (1.7-12.7); Neutrophils % 73.1 % (38.7-73.9); Platelet Count 130 T/CUMM (130-400); Red Blood Count 3.74 MC/CUMM (3.8-5.5); Red Cell Distribution Width 12.9 % (9.3-17.3); White Blood Count 7.6 T/CUMM (4-12)
[2018-09-20 05:09] LABS: Alanine Aminotransferase 24 U/L (16-61); Albumin 3.3 G/DL (3.4-5.0); Alkaline Phosphatase 65 U/L (45-117); Aspartate Amino Transferase 10 U/L (0-37); Bilirubin,Indirect 0.5 MG/DL (0.0-1.0); Blood Urea Nitrogen 17 MG/DL (7-18); Calcium 8.3 MG/DL (8.5-10.1); Glucose 116 MG/DL (74-106); Osmolality,Calculated 283.3 MOS/KG (273-304); Total Protein 6.2 G/DL (6.4-8.3)
[2018-09-20 05:22] LABS: Troponin I 0.176 NG/ML (0.00-0.045)
[2018-09-20] MEDS: CELECOXIB 200 MG CAPSULE PO SCH (08:34)
[2018-09-20] MEDS: MULTIVITAMIN (OCUVITE) TABLET PO SCH (08:34)
[2018-09-20] MEDS: COENZYME Q10 100 MG CAPSULE PO SCH (08:34)
[2018-09-20] MEDS: DOCUSATE SODIUM 100 MG CAPSULE PO SCH (08:35)
[2018-09-20] MEDS: CHLORHEXIDINE 0.12% ORAL RINSE 60 ML BOTTLE SWISH/SPIT SCH (08:35)
[2018-09-20] MEDS: PANTOPRAZOLE 40 MG TABLET PO SCH (08:35)
[2018-09-20] MEDS: FERROUS SULFATE 325 MG TABLET PO SCH (08:35)
[2018-09-20] MEDS: ASPIRIN EC 325 MG TABLET PO SCH (08:35)
[2018-09-20] MEDS: ATORVASTATIN 20 MG TABLET PO SCH (08:35)
[2018-09-20] MEDS: LOSARTAN 50 MG TABLET PO SCH (08:35)
[2018-09-20 12:19] VITALS: BP 120/70
== END 2018-09-20 14:55 | disposition home health service (06) | DRG 221 ==
LOC: N.ADMINP 08:57 → N.CVR 09-15 08:00 → N.TELES 09-16 07:48